=== PATIENT | female | born 1960 | race Hispanic/Latino ===

== ENCOUNTER 2017-10-08 11:54 | Emergency (ER) | payer BC ==
[2017-10-08 13:03] LABS: Urine Blood TRACE (NEG); Urine Glucose NEGATIVE (NEG); Urine Protein NEGATIVE (NEG); Urine Specific Gravity 1.025 (1.005-1.030); Urine pH 5.5 (5.0-7.0)
[2017-10-08 13:07] LABS: Absolute Lymphocytes (CBC) 2.2 K/uL (0.7-4.9); Absolute Monocytes 0.7 K/uL (0.1-1.3); Absolute Neutrophil 9.1 K/uL (1.8-8.0); Basophils % 0.7 % (0-1.3); Eosinophils % 0.6 % (0-4.4); Hematocrit 33.7 % (36.0-45.0); Lymphocytes % 18.4 % (15.3-44.8); MCH 22.9 pg (27.0-35.0); MCV 72.1 fL (80-100); MPV 8.2 fL (7.6-11.3); Monocytes % 5.6 % (3.3-12.3); RBC Red Blood Cell Count 4.67 M/uL (3.86-4.86)
[2017-10-08 13:10] LABS: Urine Bacteria <20 /HPF (<20); Urine Culture Reflex Order NOT NEEDED; Urine Mucus 2+ /HPF (NONE SEEN); Urine RBC <5 /HPF (NONE SEEN)
[2017-10-08 13:11] LABS: Protime INR 0.96
[2017-10-08 13:26] LABS: ALT/SGPT 19 U/L (12-78); AST/SGOT 15 U/L (15-37); Albumin 3.5 g/dL (3.4-5.0); Alkaline Phosphatase 110 U/L (45-117); Amylase Level 65 U/L (25-115); BUN Blood Urea Nitrogen 17 mg/dL (7-18); Bicarbonate 28 mmol/L (21-32); Bilirubin Direct < 0.1 mg/dL (0-0.2); Bilirubin Total 0.2 mg/dL (0.2-1.0); Glucose Level 106 mg/dL (74-106); Lipase 161 U/L (73-393); Potassium 3.5 mmol/L (3.5-5.1); Protein, Total 7.8 g/dL (6.4-8.2); Sodium Level 142 mmol/L (136-145)
--- NOTE | 2017-10-08 13:30 | RAD REPORT ---
EXAM DESCRIPTION: CTAbdomen Pelvis W Contrast - 10/08/2017 1:03 pm CLINICAL HISTORY: Abdominal pain. IV ONLY COMPARISON: Abdomen Pelvis W Contrast dated 03/27/2016; CT ABD PELVIS W CONTRAST dated 11/15/2014; [facility] Protocol dated 07/08/2016 TECHNIQUE: Biphasic CT imaging of the abdomen and pelvis was performed with 100 ml non-ionic IV cont rast. All CT scans are performed using dose optimization technique as appropriate and may include automated exposure control or mA/KV adjustment according to patient size. FINDINGS: The lung bases are clear. Diffuse fatty liver is present. No focal mass or intrahepatic biliary dilatation. The spleen, pancrea s and adrenal glands are normal. The kidneys are normal without hydronephrosis or mass. A small cyst is present lateral cortex of the right kidney measuring 6 mm. A poorly defined an irregular mass is seen in the rectum measuring 4.4 x 4.1 cm. Several small perire ctal lymph nodes are present, greater on the left, with the largest measures 6 mm. Appendectomy clips noted. No suspicious bony findings. IMPRESSION: Irregular mass is present in the rectum (4.4 x 4.1 cm) highly suspicious for rectal carc inoma. Recommend colonoscopy followup for further assessment.
--- NOTE | 2017-10-08 14:31 | ER ---
Nurse's Notes [facility] Name: Eliza Gr Age: 57 yrs Sex: Female : 1960 Arrival Date: 10/08/2017 Time: 11:58 Bed 14 Private MD: Marisol Dominguez C Diagnosis: Rectal Bleeding Presentation: 10/08 12:23 Presenting complaint: Patient states: " I have been having lower stomach for about 2 ph weeks, I have also had blood in my stools." Pt states that bleeding is bright red and began approx 1 month ago, pain began approx 2 weeks ago, reports hx of bowel resection in 2014. Transition of care: patient was not received from another setting of care. Onset of symptoms was October 08, 2017. Risk Assessment: Do you want to hurt yourself or someone else? Patient reports no desire to harm self or others. Initial Sepsis Screen: Does the patient meet any 2 criteria? No. Patient's initial sepsis screen is negative. Does the patient have a suspected source of infection? No. Patient's initial sepsis screen is negative. Care prior to arrival: None. 12:23 Method Of Arrival: Ambulatory ph 12:23 Acuity: HUBER 3 ph Historical: - Allergies: 12:21 No Known Drug Allergies; ph - Home Meds: 12:21 trazodone Oral [Active]; Lomotil oral oral [Active]; ph - PMHx: 12:21 Osteoporosis; ph - PSHx: 12:21 Partial intestine removal (2014); ph 12:22 Appendectomy; Hysterectomy; ph - Immunization history:: Adult Immunizations up to date. - Social history:: Smoking status: Patient/guardian denies using tobacco. - Ebola Screening: : No symptoms or risks identified at this time. Screenin:05 Abuse screen: Denies threats or abuse. Nutritional screening: No deficits noted. mb3 Tuberculosis screening: No symptoms or risk factors identified. Fall Risk None identified. Assessment: 13:14 General: Appears in no apparent distress. comfortable, well groomed, Behavior is calm, mb3 cooperative, appropriate for age. Pain: Complains of pain in abdomen. Neuro: No deficits noted. Level of Consciousness is awake, alert, obeys commands, Oriented to person, place, time, situation, Appropriate for age. Cardiovascular: No deficits noted. Denies chest pain, Heart tones present Capillary refill < 3 seconds Patient's skin is warm and dry. Pulses are all present. Respiratory: Airway is patent Respiratory effort is even, unlabored, Respiratory pattern is regular, symmetrical. GI: Abdomen is flat, Bowel sounds present X 4 quads. Abd is soft Abdomen is tender to palpation in right upper quadrant and left upper quadrant Reports upper abdominal pain. : No signs and/or symptoms were reported regarding the genitourinary system. Urine is clear. EENT: No signs and/or symptoms were reported regarding the EENT system. Derm: No signs and/or symptoms reported regarding the dermatologic system. Vital Signs: 12:22 BP 145 / 98; Pulse 77; Resp 18; Temp 98.4; Pulse Ox 98% on R/A; Weight 54.88 kg; Height ph 5 ft. 2 in. (157.48 cm); Pain 9/10; 15:12 BP 159 / 67; Pulse 78; Resp 16; Pulse Ox 100% on R/A; mb3 12:22 Body Mass Index 22.13 (54.88 kg, 157.48 cm) ph ED Course: 11:58 Patient arrived in ED. sb2 11:58 Marisol Dominguez MD is Private Physician. sb2 12:23 Arm band placed on. ph 12:24 Triage completed. ph 12:30 Jacobo Call PA is PHCP. jmm 12:30 Dann Brasher MD is Attending Physician. jmm 12:45 Inserted saline lock: 20 gauge in right antecubital area, using aseptic technique. mb3 Blood collected. 12:55 Home Zavala, RN is Primary Nurse. mb3 12:56 CT completed. Patient tolerated procedure well. Patient moved to CT via wheelchair. sj Patient moved back from CT. 12:58 CT Abd/Pelvis - W/Contrast In Process Unspecified. EDMS 13:36 Served as a certified medical records coder during rectal exam. 5 14:12 called and connected with Jacobo CUELLAR for patient admission consultation. eb 14:29 Marisol Dominguez MD is Referral Physician. jmm 15:10 IV discontinued, intact, bleeding controlled, No redness/swelling at site. Pressure mb3 dressing applied. 15:11 Patient has correct armband on for positive identification. Bed in low position. mb3 Administered Medications: No medications were administered Outcome: 14:31 Discharge ordered by . jmm 15:10 Discharged to home ambulatory. mb3 15:10 Condition: stable 15:10 Discharge instructions given to patient, Instructed on discharge instructions, follow up and referral plans. Demonstrated understanding of instructions, follow-up care. 15:11 Patient left the ED. mb3 Signatures: Dispatcher [employer] EDMS Jacobo Call PA PA jmm Jones, Susan sj Hall, Patricia, MIREYA RN Ruslan, Savannah [facility] Zaynab Galvin 2 Mercedes Dubois Mark, RN RN mb3
--- NOTE | 2017-10-08 14:32 | EDPHYS ---
Physician Documentation [facility] Name: Eliza Gr Age: 57 yrs Sex: Female : 1960 Arrival Date: 10/08/2017 Time: 11:58 Bed 14 Private MD: Marisol Dominguez C ED Physician Dann Brasher HPI: 10/08 13:23 This 57 yrs old Female presents to ER via Ambulatory with complaints of Abd jmm Pain > 50 y/o. 13:23 The patient presents with abdominal pain in the lower abdomen, right lower quadrant, in jmm the left lower quadrant. Onset: The symptoms/episode began/occurred gradually, 2 week(s) ago. The symptoms do not radiate. Associated signs and symptoms: Pertinent positives: blood in stools. This is a 57 year old female that presents to the ED with lower abdominal pain beginning approx 2 week ago. Patient states she has had bloody stools for the past month. Patient states in 2014 she had appendectomy with colon resection performed by Dr. Mercer. . Historical: - Allergies: 12:21 No Known Drug Allergies; ph - Home Meds: 12:21 trazodone Oral [Active]; Lomotil oral oral [Active]; ph - PMHx: 12:21 Osteoporosis; ph - PSHx: 12:21 Partial intestine removal (2014); ph 12:22 Appendectomy; Hysterectomy; ph - Immunization history:: Adult Immunizations up to date. - Social history:: Smoking status: Patient/guardian denies using tobacco. - Ebola Screening: : No symptoms or risks identified at this time. ROS: 13:23 Constitutional: Negative for fever, chills, and weight loss, Cardiovascular: Negative jmm for chest pain, palpitations, and edema, Respiratory: Negative for shortness of breath, cough, wheezing, and pleuritic chest pain. 13:23 Back: Negative for injury and pain, : Negative for injury, bleeding, discharge, and swelling, Neuro: Negative for headache, weakness, numbness, tingling, and seizure, Psych: Negative for depression, anxiety, suicide ideation, homicidal ideation, and hallucinations. 13:23 Abdomen/GI: Positive for abdominal pain, bloody stools. 13:23 All other systems are negative. Exam: 13:23 Head/Face: atraumatic. Eyes: EOMI, no conjunctival erythema appreciated ENT: Moist [facility] Mucus Membranes Chest/axilla: Normal chest wall appearance and motion. Cardiovascular: Regular rate and rhythm. No edema appreciated Respiratory: Normal respirations, no respiratory distress appreciated 13:23 Skin: General appearance color normal MS/ Extremity: Moves all extremities, no obvious deformities appreciated, no edema noted to the lower extremities Neuro: Awake and alert, normal gait 13:23 Constitutional: The patient appears in no acute distress, alert, awake. 13:23 Abdomen/GI: Inspection: abdomen appears normal, Bowel sounds: normal, Palpation: soft, mild abdominal tenderness, in the right lower quadrant and left lower quadrant. 13:23 Back: ROM is normal. Vital Signs: 12:22 BP 145 / 98; Pulse 77; Resp 18; Temp 98.4; Pulse Ox 98% on R/A; Weight 54.88 kg; Height ph 5 ft. 2 in. (157.48 cm); Pain 9/10; 15:12 BP 159 / 67; Pulse 78; Resp 16; Pulse Ox 100% on R/A; mb3 12:22 Body Mass Index 22.13 (54.88 kg, 157.48 cm) ph MDM: 12:52 Patient medically screened. [facility] 14:27 Data reviewed: vital signs, nurses notes. Physician consultation: Marisol Dominguez MD. [facility] 14:55 Counseling: I had a detailed discussion with the patient and/or guardian regarding: the [facility] historical points, exam findings, and any diagnostic results supporting the discharge/admit diagnosis, lab results, radiology results, the need for outpatient follow up. 10/08 12:40 Order name: Amylase, Serum [facility] 10/08 12:40 Order name: Basic Metabolic Panel [facility] 10/08 12:40 Order name: CBC with Diff; Complete Time: 13:28 [facility] 10/08 12:40 Order name: Creatinine for Radiology; Complete Time: 13:28 [facility] 10/08 12:40 Order name: Hepatic Function [facility] 10/08 12:40 Order name: Lipase [facility] 10/08 12:40 Order name: Urine Microscopic Only; Complete Time: 13:28 [facility] 10/08 12:40 Order name: IV Saline Lock; Complete Time: 13:04 [facility] 10/08 12:40 Order name: Ptt, Activated; Complete Time: 13:28 [facility] 10/08 12:40 Order name: PT-INR; Complete Time: 13:28 [facility] 10/08 12:40 Order name: CT Abd/Pelvis - W/Contrast; Complete Time: 13:35 [facility] 10/08 12:54 Order name: Urine Dipstick--Ancillary (enter results); Complete Time: 13:09 10/08 14:22 Order name: LAB Add On 10/08 14:56 Order name: Carcinoembryonic Antigen [facility] 10/08 12:40 Order name: Labs collected and sent; Complete Time: 13:04 [facility] 10/08 12:40 Order name: Urine Dipstick-Ancillary (obtain specimen); Complete Time: 13:04 [facility] Administered Medications: No medications were administered Disposition: 18:04 Co-signature as Attending Physician, Dann Brasher MD. rn Disposition: 10/08/17 14:31 Discharged to Home. Impression: Rectal Bleeding. - Condition is Stable. - Discharge Instructions: Rectal Bleeding. - Medication Reconciliation Form, Thank You Letter, Antibiotic Education, Prescription Opioid Use form. - Follow up: Marisol Dominguez MD; When: Upon discharge from the Emergency Department. Signatures: Dispatcher [employer] [facility] Jacobo Call PA PA jmm Nieto, Roman, MD MD rn Lisbeth Rush RN RN Home Martin RN RN mb3 Corrections: (The following items were deleted from the chart) 15:11 14:31 10/08/2017 14:31 Discharged to Home. Impression: Rectal Bleeding. Condition is mb3 Stable. Forms are Medication Reconciliation Form, Thank You Letter, Antibiotic Education, Prescription Opioid Use. Follow up: Marisol Dominguez; When: Upon discharge from the Emergency Department. [facility]
[2017-10-08 15:12] LABS: Carcinoembryonic Antigen 8.1 ng/mL (0-5.0)
[2017-10-08 15:15] VITALS: BP 145/98; TEMP 98.4; O2SAT 98
== END 2017-10-08 15:11 | disposition home or self-care (01) ==
LOC: ER 11:54
DX: K62.5 Hemorrhage of anus and rectum (principal)
CPT/HCPCS: 36415; 74177; 80048; 80076; 81003; 81015; 82150; 82378; 83690; 85025; 85610; 85730; 99284; Q9967

== ENCOUNTER 2017-10-19 07:55 | Day surgery (SDC) | payer BC ==
[2017-10-19] MEDS ORDERED: Ringers Lactate 1,000 ML IV ONE (08:15)
[2017-10-19] MEDS ORDERED: PROPOFOL 200 MG/20 ML VIAL IV ONE (09:09)
[2017-10-19] MEDS ORDERED: LIDOCAINE 1% MPF 5 ML VIAL ONE (09:10)
[2017-10-19] MEDS ORDERED: ONDANSETRON 4 MG/2 ML VIAL ONE (09:50)
--- NOTE | 2017-10-19 09:54 | ENDO RPT ---
[address], [address] COLONOSCOPY PROCEDURE REPORT EXAM DATE: 10/19/2017 PATIENT NAME: Eliza Gr MR #: [id number] BIRTHDATE: 1960 ATTENDING: Daniel Mercer MD STATUS: outpatient HAMMER ADJUSTER: Tabby Genao RN and Sade Evans INDICATIONS: The patient is a 57 yr old Female here for a colonoscopy due to bright red bleeding PROCEDURE PERFORMED: Colonoscopy with hot biopsy polypectomy MEDICATIONS: Per Anesthesia. ESTIMATED BLOOD LOSS: None CONSENT: The patient understands the risks and benefits of the procedure and understands that these risks include, but are not limited to: sedation, allergic reaction, infection, perforation and/or bleeding. Alternative means of evaluation and treatment include, among others: physical exam, x-rays, and/or surgical intervention. The patient elects to proceed with this endoscopic procedure. DESCRIPTION OF PROCEDURE: During intra-op preparation period all mechanical medical equipment was checked for proper function. Hand hygiene and appropriate measures for infection prevention was taken. Procedure, possible complications, alternatives including, but not limited to possibility of bleeding, perforation, tear, infection, sepsis, need for surgery, need for blood transfusion, were explained to the patient. After the risks, benefits and alternatives of the procedure were thoroughly explained, Informed consent was verified, confirmed and timeout was successfully executed by the treatment team. The patient was placed in the left lateral position. A digital rectal exam was performed and revealed external hemorrhoids. After appropriate level of anesthesia, the scope was passed. The EC-[id number] ([id number]) endoscope was introduced through the anus and advanced to the proximal transverse colon where ileocecal anastomosis its present. The quality of the prep was good. The instrument was then slowly withdrawn as the colon was fully examined. Scope withdrawal time was . COLON FINDINGS: A bleeding tumor/mass of unknown type was seen in the mid rectum approximately 10-12 cm from anus. Retroflexed views revealed no abnormalities and Retroflexed views revealed medium hemorrhoids. The scope was then completely withdrawn from the patient and the procedure terminated. ADVERSE EVENTS: There were no complications. IMPRESSIONS: Bleeding tumor/mass in the rectum RECOMMENDATIONS: 1. follow-up: office 1 week(s) 2. await biopsy results RECALL: for Colonoscopy, pending biopsy results. Daniel Mercer MD eSigned: Daniel Mercer MD 10/19/2017 9:54 AM cc: CPT CODES: ICD9 CODES: PATIENT NAME: Simón Eliza J. MR#: [id number]
[2017-10-19] MEDS: FENTANYL CITR 100 MCG/2 ML ONE ×2 (09:56→10:01)
[2017-10-19 10:28] VITALS: BP 117/65; TEMP 98.1; O2SAT 98
== END 2017-10-19 10:45 | disposition home or self-care (01) ==
LOC: OR 07:55
PROVIDERS: ATTEND Surgery
PROC: 0DBP8ZX Excision of Rectum, Via Natural or Artificial Opening Endoscopic, Diagnostic (ICD-10-PCS; principal; 2017-10-19 09:15)
DX: C20 Malignant neoplasm of rectum (principal); K64.4 Residual hemorrhoidal skin tags
CPT/HCPCS: 88305; J2405; J3010

== ENCOUNTER 2019-10-22 22:12 | Emergency (ER) | payer BC ==
--- OUTSIDE RECORDS SUMMARY | 2019-10-22 22:15 | XMS REPORT | Continuity of Care Document ---
:1960 Author Organization [facility] t Address [address] [place] [address] Care Team Providers Name Role Phone ANASTACIO Primary Care Physician Unavailable Diana WASHINGTON Attending Clinician Unavailable Gloria GOMES, Marisol Attending Clinician Unavailable Calixto CUELLAR Attending Clinician MARTHA Attending Clinician Unavailable Zhang DAWSON Attending Clinician Subha GOMES, K Attending Clinician Unavailable Anastacio HARO Attending Clinician Leigh Mckinnon DO Attending Clinician Jolene GOMES, R Attending Clinician Unavailable Martha HARO Attending Clinician Anthony ASHBY Attending Clinician Syl Marion MD Attending Clinician Nataliya HARO Attending Clinician Mihaela Brower MD Attending Clinician Ana Maria DAWSON, Vaishnavi Attending Clinician Davey DAWSON, A Attending Clinician Payers Payer Name Policy Type Policy Number Effective Date Expiration Date S yonathan [place] POS [id number] 2017 00:00:00 Problems Condition Condition Condition Status Onset Resolution Last Treating Co mments Source Name Details Category Date Date Treatment Clinician Date Severe Severe Disease Active protein-ca protein-ca 04-16 An derso janice janice 00:00: n malnutriti malnutriti 00 on on Painful Painful Disease Active urination urination 24 Leandro rso 00:00: n 00 Dehydratio Dehydratio Disease Active M D n n 24 Anderso 00:00: n 00 Irritant Irritant Disease Active contact contact 04-15 Anderso dermatitis dermatitis 00:00: n due to due to 00 ileostomy ileostomy Rectal Rectal Disease Active cancer cancer 10-28 Anderso 00:00: n 00 Menopause Menopause Disease Active - Anderso 00:00: n 00 Endometrio Endometrio Disease Active M D sis sis 10-21 Anderso 00:00: n 00 Osteoporos Osteoporos Disease Active M D is is Anderso n Gastric Gastric Disease Active reflux reflux Anderso n Personal Personal Disease Active history of history of An derso chemo chemo n History of History of Disease Active M D radiation radiation Leandro rso therapy therapy n Acute Acute Disease Active abdominal abdominal Leandro rso pain pain n Allergies, Adverse Reactions, Alerts This patient has no known allergies or adverse reactions. Family History Family Member Diagnosis Comments Start Date Stop Date Source Cousin -Breast cancer MD Janie guallpa Natural father -Melanoma MD Janie guallpa Maternal aunt -Breast cancer MD Leandro forbes Social History Social Habit Start Date Stop Date Quantity Comments Source Sex Assigned At MD Gaitan on Tobacco use and 2019-04-19 2019-04-19 Never used MD Gaitan on exposure 00:00:00 00:00:00 Alcohol intake 2019-04-19 2019-04-19 Current MD Janie guallpa 00:00:00 00:00:00 non-drinker of alcohol (finding) Smoking Status Start Date Stop Date Source Never smoker MD Fuentes Medications Ordered Filled Start Stop Current Ordering Indication Dosage Frequency Signature Comments Components Source Medication Medication Date Date Medication? Clinician (SIG) Name Name diphenoxyla Yes Rectal TAKE 1 TO MD borgesatropine -24 cancer 2 TABLETS A nderso (LOMOTIL) 00:00: BY MOUTH n 2.5 00 EVERY 6 mg-0.025 mg HOURS per tablet NEEDED FOR DIARRHEA . DO NOT EXCEED 8 TABLETS PER 24 HOURS alendronate Yes TAKE 1 MD (FOSAMAX) 6-25 TABLET BY Sree so 35 mg 00:00: MOUTH ONCE n tablet 00 A WEEK ciprofloxac 2019-0 Yes TAKE 1 MD in HCl 4-30 TABLET BY Andersmaryana (CIPRO) 500 00:00: MOUTH n mg tablet 00 EVERY 12 HOURS FOR 7 DAYS diphenoxyla 2020-0 2020- No Rectal 1{tbl} Take 1-2 MD te-atropine 4-21 07-24 cancer tablets by Anderso (LOMOTIL) 00:00: 00:00 mouth n 2.5 00 :00 every 6 mg-0.025 mg (six) per tablet hours as needed for diarrhea. Not to exceed 8 tablets per day diphenoxyla 2020-0 Yes Rectal TAKE 1 TO MD te-atropine 4-15 cancer 2 TABLETS A nderso (LOMOTIL) 00:00: BY MOUTH n 2.5 00 TWICE mg-0.025 mg DAILY per tablet NEEDED DIARRHEA. DO NOT EXCEED 8 TABLETS IN 24 HOURS diphenoxyla 2020-0 2019- No Rectal TAKE 1 TO MD te-atropine 3-17 04-15 cancer 2 TABLETS Anderso (LOMOTIL) 00:00: 22:05 BY MOUTH n 2.5 00 :11 TWICE mg-0.025 mg DAILY per tablet NEEDED FOR DIARRHEA . DO NOT EXCEED 8 PER 24 HOURS loperamide 2019-0 Yes 2mg Take 2 mg MD (IMODIUM 1-30 by mouth Anderso A-D) 2 mg 18:18: as needed n tablet 04 for diarrhea. cyanocobala 2020-0 Yes 1000ug Take 1,000 MD min 1-30 mcg by Anderso (vitamin 18:18: mouth n B-12) 1000 04 every mcg tablet other day. calcium 2020-0 2020- No 1{tbl} Take 1 MD carbonate/v 1-29 01-29 tablet by An derso itamin D3 15:15: 00:00 mouth n (CALCIUM 38 :00 daily. 600 WITH VITAMIN D3 ORAL) diphenoxyla 2020-0 2020- No Rectal 1{tbl} Take 1-2 MD te-atropine 1-29 03-17 cancer tablets by Anderso (LOMOTIL) 00:00: 00:00 mouth 2 n 2.5 00 :00 (two) mg-0.025 mg times a per tablet day as needed for diarrhea. Not to exceed 8 tablets per day diphenoxyla 2018-03- No Rectal 1{tbl} Take 1-2 MD te-atropine 0-31 11- cancer tablets by Anderso (LOMOTIL) 00:00: 00:00 mouth 3 n 2.5 00 :00 (three) mg-0.025 mg times a per tablet day as needed for diarrhea. omeprazole 2018-03- No 20mg Take 20 mg MD (PriLOSEC 0-28 10-28 by mouth Sree so OTC) 20 MG 16:38: 00:00 daily. n tablet 20 :00 peg 2018-03 Yes History of Use as MD 3350-electr 0-24 radiation directed Anderso olytes 00:00: therapy by n (Emil) 00 ordering [id number] provider. .74 g solution peg 2018-03- No History of Use as MD 3350-electr 0-24 10-21 radiation directed Anderso olytes 00:00: 00:00 therapy by n (Emil) 00 :00 ordering [id number] provider. .74 g solution diphenoxyla 2019- No Rectal 1{tbl} Take 1-2 MD te-atropine 9-26 01-29 cancer tablets by Anderso (LOMOTIL) 00:00: 00:00 mouth 2 n 2.5 00 :00 (two) mg-0.025 mg times a per tablet day as needed for diarrhea. Not to exceed 8 tablets per day diphenoxyla No Rectal 1{tbl} Take 1-2 MD te-atropine 7-16 09-26 cancer tablets by Anderso (LOMOTIL) 00:00: 00:00 mouth 2 n 2.5 00 :00 (two) mg-0.025 mg times a per tablet day as needed for diarrhea. Not to exceed 8 tablets per day pantoprazol Yes 40mg Take 40 mg MD e 5-08 by mouth Anderso (PROTONIX) 00:00: daily with n 40 mg EC 00 breakfast. tablet lidocaine 4 No Rectal 2{patch Apply 2 MD % ptmd 2-21 - cancer } patches Anderso 00:00: 00:00 topically n 00 :00 daily. ferrous 2019-0 2019- No Acute 325mg Take 1 MD sulfate 325 2-14 10-28 posthemorrh tablet Anderso mg (65 mg 00:00: 00:00 agic anemia (325 mg) n elemental 00 :00 by mouth iron per daily. tablet) tablet methocarbam 2019- No Attention 500mg Take 1 MD ol 2-13 -28 to tablet Anderso (ROBAXIN) 00:00: 00:00 ileostomy (500 mg) n 500 mg 00 :00 by mouth tablet every 8 (eight) hours as needed for muscle spasms (abdominal pain/ryan ess). lidocaine-p Yes Encounter Apply to MD rilocaine 1-10 for Port-A-Cat Leandro bud (EMLA) 00:00: adjustment h area 30 n 2.5-2.5% 00 and to 45 cream management minutes of vascular prior to access port device access as directed (topical anesthetic to the anterior chest only). ondansetron Yes cancer 8mg Take 1 MD (ZOFRAN) 8 8-21 chemotherap tablet (8 Anderso mg tablet 00:00: y-induced mg) by n 00 nausea and mouth vomiting every 8 hours as needed for nausea or vomiting. prochlorper Yes cancer 10mg Take 1 MD azine 8-21 chemotherap tablet (10 A nderso (COMPAZINE) 00:00: y-induced mg) by n 10 mg 00 nausea and mouth tablet vomiting every 6 hours as needed for nausea or vomiting. iron 2018- No 1{tbl} Take 1 MD fum/folic 7-30 10-28 tablet by Leandro farrell acid/mv,min 00:00: 00:00 mouth n 15 00 :00 daily. (HEMOCYTE-P JOSE ANTONIO ORAL) alendronate Yes 1{tbl} Take 1 MD (FOSAMAX) 5 6-26 tablet by And erso mg tablet 00:00: mouth once n 00 a week. calcium 2018- No 1{tbl} Take 1 MD phosphate 6-01 10-28 tablet by Leandro farrell trib/vit D3 00:00: 00:00 mouth n (CALTRATE 00 :00 twice GUMMY BITES daily. ORAL) 2017- Yes 1{tbl} Take 1 MD comb 1-15 tablet by Janie no.42/folic 00:00: mouth n acid 00 daily. (PRENA1 CHEW ORAL) traZODone 2008-0 Yes 1.5{tbl Take 1.5 M D (DESYREL) 04-23 } tablets by Leandro washingtono 100 mg 00:00: mouth at n tablet 00 bedtime. Immunizations Ordered Immunization Filled Immunization Date Status Commen ts Source Name Name Influenza, 2019-01-20 Completed MD Fuentes Quadrivalent 00:00:00 Vital Signs Vital Name Observation Time Observation Value Comments Source Systolic blood pressure 2019-04-21 15:02:12 120 mm[Hg] MD Fuentes Diastolic blood pressure 2019-04-21 15:02:12 73 mm[Hg] MD Fuentes Heart rate 2019-04-21 15:02:12 78 /min MD Sree weems Body temperature 2019-04-21 15:02:12 36.61 Dari MD Marisol davis Respiratory rate 2019-04-21 15:02:12 20 /min MD Marisol davis Body weight 2019-04-21 15:02:12 50.3 kg MD Sree weems BMI 2019-04-21 15:02:12 19.65 kg/m2 MD Sree weems Oxygen saturation in 2019-04-21 15:02:12 95 /min MD Fuentes Arterial blood by Pulse oximetry Procedures Procedure Date / Time Performed Performing Clinician Sour e CT CHEST ABDOMEN PELVIS W 2019-04-19 22:31:00 Diego Yates MD CONTRAST CARCINOEMBRYONIC ANTIGEN 2019-04-19 17:01:00 Gayle Yates MD COMPLETE BLOOD COUNT W/ 2019-04-19 17:01:00 Redd Yates DIFFERENTIAL COMPREHENSIVE METABOLIC PANEL 2019-04-19 17:01:00 Norman Yates MD LACTATE DEHYDROGENASE 2019-04-19 17:01:00 Ayleen Yates MD PHOSPHORUS LEVEL 2019-04-19 17:01:00 Ayleen Yates MD MAGNESIUM LEVEL 2019-04-19 17:01:00 Ayleen Yates MD And erson Results CBC 2019-04-19 17:01:00 Ayleen Yates MD And erson MANUAL DIFFERENTIAL 2019-04-19 17:01:00 Ayleen Yates MD GLUCOSE LEVEL 2019-04-19 17:01:00 Ayleen Yates MD And erson BLOOD UREA NITROGEN 2019-04-19 17:01:00 Ayleen Yates MD ELECTROLYTE PANEL 2019-04-19 17:01:00 Ayleen Yates MDrson SERUM CREATININE 2019-04-19 17:01:00 Ayleen Yates MD .GLOMERULAR FILTRATION RATE 2019-04-19 17:01:00 Shanna Yates MD CALCIUM LEVEL TOTAL 2019-04-19 17:01:00 Ayleen Yates MD ALBUMIN LEVEL 2019-04-19 17:01:00 Ayleen Yates MD And erson ALKALINE PHOSPHATASE 2019-04-19 17:01:00 Ayleen Yates ALANINE AMINOTRANSFERASE 2019-04-19 17:01:00 Gayle Yates MD ASPARTATE AMINOTRANSFERASE 2019-04-19 17:01:00 Stanley Yates MD TOTAL PROTEIN 2019-04-19 17:01:00 Ayleen Yates MD And erson FRACTIONATED BILIRUBIN 2019-04-19 17:01:[address] CHEST ABDOMEN PELVIS W 2019-01-19 19:48:00 Lina De Luna MD CONTRAST POC BLOOD UREA NITROGEN + 2019-01-19 17:05:00 Lina De Luna MD CREATININE CARCINOEMBRYONIC ANTIGEN 2019-01-19 16:36:00 Lina De Luna MD COMPLETE BLOOD COUNT W/ 2019-01-19 16:36:00 Lina De Luna MDrson DIFFERENTIAL COMPREHENSIVE METABOLIC PANEL 2019-01-19 16:36:00 Courtney De Luna MD LACTATE DEHYDROGENASE 2019-01-19 16:36:00 Lina De Luna MD And erson MAGNESIUM LEVEL 2019-01-19 16:36:00 Lina De Luna MD PHOSPHORUS LEVEL 2019-01-19 16:36:00 Lina De Luna MD Results CBC 2019-01-19 16:36:00 Lina De Luna MD MANUAL DIFFERENTIAL 2019-01-19 16:36:00 Lina De Luna MD Sree son GLUCOSE LEVEL 2019-01-19 16:36:00 Lina De Luna MD BLOOD UREA NITROGEN 2019-01-19 16:36:00 Lina De Luna MD Sree weems ELECTROLYTE PANEL 2019-01-19 16:36:00 Lina De Luna MD SERUM CREATININE 2019-01-19 16:36:00 Lina De Luna MD .GLOMERULAR FILTRATION RATE 2019-01-19 16:36:00 Lina De Luna MD CALCIUM LEVEL TOTAL 2019-01-19 16:36:00 Lina De Luna MD Sree weems ALBUMIN LEVEL 2019-01-19 16:36:00 Lina De Luna MD ALKALINE PHOSPHATASE 2019-01-19 16:36:00 Lina De Luna MD Leandro rskaiden ALANINE AMINOTRANSFERASE 2019-01-19 16:36:00 Lina De Luna MD ASPARTATE AMINOTRANSFERASE 2019-01-19 16:36:00 Lina De Luna TOTAL PROTEIN 2019-01-19 16:36:00 Lina De Luna MD FRACTIONATED BILIRUBIN 2019-01-19 16:36:00 Lina De Luna MDson ENDOSCOPY NOTE RESULTS 2019-01-17 18:02:21 MD Marisol Morrow DIAGNOSTIC FLEXIBLE 2019-01-17 18:01:00 Syl Marion MD Leandro rskaiden COLONOSCOPY PROXIMAL TO George SPLENIC FLEXURE Encounters Start End Encounter Admission Attending Care Care Encounter Source Date/Time Date/Time Type Type Clinicians Facility Department ID 2019-09-16 Outpatient [facility] CANDELARIA GAONA [id number] 0 17:47:44 Janie guallpa 2019-10-04 2019-10-04 Outpatient LISBET MCGRATH MDA, MDA [id number] [id number] 00:00:00 00:00:00 Arnie SINGH 2019-09-22 2019-09-22 Outpatient LISBET MCGRATH MDA, MDA [id number] 00:00:00 00:00:00 Arnie SINGH Results Test Description Test Time Test Comments Results Result [facility] Comments CT Chest Abdomen 2019-04-19 1. A 0.9 x 2 cm MD Fuentes Pelvis with 22:58:33 area of soft Contrast tissue thickening anterior to the rectum may represent postsurgical change versus developing tumor recurrence. Continued attention on followup.Interface , Radiology Results In 04/19/2019 5:00 PM CSTFULL RESULT:Examination : CT CHEST ABDOMEN PELVIS W CONTRAST, 04/19/2019 4:31 PMClinical History: Rectal cancerIndication: RestagingCompariso n: CT from 09/30/2018, CT from 02/15/2018, CT from 10/08/2017, Technique: ct chest with contrast. ct abdomen with contrast. ct pelvis with contrast. Findings:Lungs: Lungs are clear. Hepatobiliary: The liver, gallbladder, spleen, pancreas are normal.Gastrointes tinal: Rectal anastomosis is intact. A 0.9 x 2 cm area of soft tissue thickening anterior to the rectum image 253 series 3 appears slightly more dense compared to prior. A 0.5 cm perirectal node image 249 series 3 is stable. No bowel obstruction. No ascites.Genitourin samuel: There is a 0.9 cm right renal cyst image 23 series 3. Adrenals are normal.Lymphatics: No lymphadenopathy.MS K: Ventral abdominal wall hernia repair. IMPRESSION:1. A 0.9 x 2 cm area of soft tissue thickening anterior to the rectum may represent postsurgical change versus developing tumor recurrence. Continued attention on followup. CEA 2019-04-19 18:27:32 Test Item Value Reference Range Interpretation Comme nts CEA (test code = 5203) 0.8 ng/mL <=3.8 Refer ence Ranges: Smoker: 0.0-5.5 MD FuentesFractionated [id number] 18:04:07 Test Item Value Reference Range Interpretation Comments Bili Total (test 0.3 mg/dL <=1.2 Indocyanine Green (ICG) code = 5096) may cause false ly elevated biliru bin results. Total and direct bilirubin must not be measured from s amples containing indo cyanine green. False el evation of total bilirubin can be seen in patient s with IgG concentrations above 28 g/L. Bili Direct (test 0.1 mg/dL <=0.3 Indocyanin e Green (ICG) code = 5094) may cause false ly elevated biliru bin results. Total and direct bilirubin must not be measured from s amples containing indo cyanine green. Bili Indirect (test 0.2 mg/dL 0-0.9 code = 5095) MD FuentesGlomerular Filtration [id number] 18:04:06 Test Item Value Reference Range Interpretation Comments eGFR-AA (test 104 >=60 mL/min/1.73 sq. Normal eGFR: >= 60 code = 8062) m mL/min/1.73 m2N ote: The eGFR is calcula purnima using the CKD-EPI equ ation. The eGFR declines w ith age. eGFR <60 mL/min /1.73 m2 is considered as " decreased". This equation s hould only be used for pat ients 18 and older. Acco rding to the [facility] dney Foundation's dney Disease Outcome Quality Initiative (KDO QI) classification and 2012 Kidney Disease Improving Global Outcomes (KDIGO) Clinical Practi ce Guideline, the stage of CKD should be c ategorized based on estima purnima GFR. Stage Descripti on GFR mL/min/1.73 m21 Normal or high GFR >=902 Mildly de creased GFR 60-893a Mildly to moder ately decreased GFR 45-593b Moderately to s everely decreased GFR 30-444 Severely decrea sed GFR 15-295 Kidney failure <15 eGFR-SUZANNE (test 90 >=60 mL/min/1.73 sq. Jena l eGFR: >= 60 code = 8063) m mL/min/1.73 m2N ote: The eGFR is calcula purnima using the CKD-EPI equ ation. The eGFR declines w ith age. eGFR <60 mL/min /1.73 m2 is considered as " decreased". This equation s hould only be used for pat ients 18 and older. Acco rding to the [facility] dney Foundation's dney Disease Outcome Quality Initiative (KDO QI) classification and 2012 Kidney Disease Improving Global Outcomes (KDIGO) Clinical Practi ce Guideline, the stage of CKD should be c ategorized based on estima purnima GFR. Stage Descripti on GFR mL/min/1.73 m21 Normal or high GFR >=902 Mildly de creased GFR 60-893a Mildly to moder ately decreased GFR 45-593b Moderately to s everely decreased GFR 30-444 Severely decrea sed GFR 15-295 Kidney failure <15 MD FuentesMagnesium [id number] 18:04:05 Test Item Value Reference Range Interpretation Comments Magnesium (test code = 6359) 1.9 mg/dL 1.6-2.6 MD [id number] 18:04:04 Test Item Value Reference Range Interpretation Comments LDH (test code = 174 U/L 135-214 Results gre ater than 1800 6111) U/L may not be reliable due to matrix effec t with extended diluti on as it exceeds the man ufacturer s recommended l imit. Caution should be exercised when interpreti ng such values and done in conjunction wit h clinical context. MD FuentesAlkaline [id number] 18:04:03 Test Item Value Reference Range Interpretation Comments Alk Phos (test code = 4768) 81 U/L 35-104 MD FuentesAlbumin [id number] 18:04:02 Test Item Value Reference Range Interpretation Comments Albumin Lvl (test code = 4763) 4.4 3.5- 5.2 gm/dL MD FuentesAspartate [id number] 18:04:01 Test Item Value Reference Range Interpretation Comments AST (test code = 4731) 18 U/L <=32 MD FuentesElectrolyte [id number] 18:04:00 Test Item Value Reference Range Interpretation Comments Sodium Lvl (test code = 7355) 139 136- 145 mEq/L Potassium Lvl (test code = 6854) 3.2 3.5- 5.1 mEq/L L Chloride (test code = 5279) 100 98- 107 mEq/L CO2 (test code = 5227) 32 22- 29 mEq/L H Anion Gap (test code = 9325) 7 4- 14 mEq/L Lab Interpretation (test code = Abnormal 21620-2) MD Fuentes.Serum [id number] 18:03:59 Test Item Value Reference Range Interpretation Comments Creatinine (test code = 5399) 0.73 mg/dL 0.51-0.95 MD FuentesTotal [id number] 18:03:57 Test Item Value Reference Range Interpretation Comments Total Protein (test code = 7649) 7.0 6.4- 8.3 gm/dL MD FuentesPhosphorus [id number] 18:03:56 Test Item Value Reference Range Interpretation Comments Phosphorus (test code = 6817) 3.6 mg/dL 2.5-4.5 MD FuentesCalcium [id number] 18:03:55 Test Item Value Reference Range Interpretation Comments Calcium Lvl (test code = 5258) 9.6 mg/dL 8.4-10.2 MD [id number] 18:03:54 Test Item Value Reference Range Interpretation Comments ALT (test code = 4705) 16 U/L <=33 MD [id number] 18:03:53 Test Item Value Reference Range Interpretation Comments BUN (test code = 5055) 9 mg/dL 6-23 AlfredoGlucose [id number] 18:03:52 Test Item Value Reference Range Interpretation Comments Glucose Level (test code 104 mg/dL 70-99 H Ref erence range is = 5699) valid for fasti ng specimens only. Guidelines established by the [place] Diabet es [employer] guidelines (Standards of Medical Care in Diabetes 2016. Diabetes Care 2 016; 39: S13-22) are that a fasting gluco se of greater than or equal to 126 mg /dL or a random glu cose greater than or equal to 200 mg /dL with symptoms, that are confirmed b y repeat testing on a different day, meet the criteria fo r diabetes mellboone us. Lab Interpretation (test Abnormal code = 75142-9) MD Fue[id number] 17:12:31 Test Item Value Reference Range Interpretation Comments Neutrophil % (test code = 79.0 % 42-66 H 10712-2) Lymphocyte % (test code = 10.2 % 24-44 L 737-7) Monocyte % (test code = 7.6 % 2-7 H 744-3) Eosinophil % (test code = 2.3 % 1-4 713-8) Basophil % (test code = 0.6 % 0-1 707-0) IGRE % (test code = 0.3 % 0-0.4 IGRE % c ount 08870-7) includes Metamyelocytes, Myelocytes, and Promyelocytes. Neutrophil Abs (test code 5.53 K/uL 1.7-7.3 = 753-4) Lymphocyte Abs (test code 0.71 K/uL 1-4.8 L = 732-8) Monocyte Abs (test code = 0.53 K/uL 0.08-0.7 743-5) Eosinophil Abs (test code 0.16 K/uL 0.04-0.4 = 712-0) Basophil Abs (test code = 0.04 K/uL 0-0.1 705-4) IG Abs (test code = 0.02 K/uL 0-0.04 36307-1) Lab Interpretation (test Abnormal code = 04624-1) MD Fuentes.[id number] 17:12:27 Test Item Value Reference Range Interpretation Comments WBC (test code = 7.0 K/uL 4-11 6690-2) RBC (test code = 4.29 4.00- 5.50 M/uL 789-8) Hgb (test code = 12.1 12.0- 16.0 gm/dL 718-7) Hct (test code = 37.3 % 37-47 4544-3) MPV (test code = 9.3 fL 4-10.4 787-2) MCH (test code = 28.2 pg 27-31 785-6) MCHC (test code = 32.4 31.0- 36.0 gm/dL 786-4) RDW-SD (test code = 40.6 fL 35.1-46.3 57807-5) RDW-CV (test code = 12.8 % 12-15.5 788-0) Platelet count (test 248 K/uL 140-440 code = 777-3) INRBC (test code = 0.0 % <=0.0 The INRBC (instrument 5974) NRBC) value ref lects the enumerationof n ucleated red blood cells contained in a 200uL sampleof whole blood analyzed by the instrument. Thi s value maydiffer from the NRBC value reported in a manual differential,wh ich is based on a 100 cell differential. MD FuentesPO BUN + [id number] 17:20:36 Test Item Value Reference Range Interpretation Comments POC BUN (test code = 7 mg/dL 8-26 L 6299-2) POC Crea (test code 0.7 mg/dL 0.6-1.3 Medicati ons, especially = 33838-4) hydroxyurea or supplements, london ch as ascorbate, can interfere with test resul ts causing a falsely and significantlyhi gher result than exp ected. If a problem is [place] spected with a patient' s result, a sample should be sent to the doctors [facility] for confirmatory te sting. POC eGFR-AA (test 110 >=60 Normal eGF R >= 60 code = 25523-6) mL/min/1.73 m2 mL/min/1.7 3 m2 The eGFR is calculated u sing the CKD-EPI equatio n. The eGFR declines w ith age. eGFR <60 mL/min /1.73 m2 is considered a s "decreased" Thi s equation should only be used for patients 18 and older. According to [facility] National Kidney Foundati on's Kidney Disease Outcome Quality Initiat mitchell (KDOQI) classif ication and 2012 Kidney Disease Improving Globa l Outcomes (KDIGO) Clinica l Practice Guideline, the stage of CKD should be c ategorized based on estima purnima GFR. Stage Descripti on GFR mL/min/1.73 m21 Kidney damage with nor mal or high GFR >= 902 Kidney damage with mil d decrease in GFR 60-89 3a Mild to moderate decrea se in GFR 45-593b Mode rate to severe decrease in GFR 30-444 Severe decrease in GFR 15-29 5 Kidney failure <15 (or dialysis) POC eGFR-SUZANNE (test 95 >=60 Normal eG FR >= 60 code = 03873-9) mL/min/1.73 m2 mL/min/1.7 3 m2 The eGFR is calculated u sing the CKD-EPI equatio n. The eGFR declines w ith age. eGFR <60 mL/min /1.73 m2 is considered a s "decreased" Thi s equation should only be used for patients 18 and older. According to [facility] National Kidney Foundati on's Kidney Disease Outcome Quality Initiat mitchell (KDOQI) classif ication and 2012 Kidney Disease Improving Globa l Outcomes (KDIGO) Clinica l Practice Guideline, the stage of CKD should be c ategorized based on estima purnima GFR. Stage Descripti on GFR mL/min/1.73 m21 Kidney damage with nor mal or high GFR >= 902 Kidney damage with mil d decrease in GFR 60-89 3a Mild to moderate decrea se in GFR 45-593b Mode rate to severe decrease in GFR 30-444 Severe decrease in GFR 15-29 5 Kidney failure <15 (or dialysis) POC Clean Dev (test Yes code = 6672) Lab Interpretation Abnormal (test code = 66980-2) MD FuentesENDOSCOPY NOTE [id number] 18:02:21George Morrow MD - 01/17/2019 1:02 PM CDTPatient Name: Ramiro Lombardo: FemaleMRN: [id number]: [id number] Date No Time: 01/17/2019Instrument Name: 2290 COLON-PCFProceduralist(s): Aung MARTINEZeddickson Name: ColonoscopyScope In: 1:20:25 PMScope Out: 1:33:19 PMScope Withdrawal Time 0 hours 10 minutes 25 seconds Total Procedure Duration Time 0 hours12 minutes 54 seconds Patient Profile: This is a 58 year old female with a h/o CRC post resection. Here for surveillance colonoscopy.Indications: High risk colon cancer surveillance: Personal history of colon cancerMedications: Total IV Anesthesia (TIVA), [id number] Description: Pre-Anesthesia Assessment: - Prior to the procedure, a History and Physical was performed, and patient medications and allergies were reviewed. The patient's tolerance of previous anesthesia was also reviewed. The risks and benefits of the procedure and the sedation options and risks were discussed with the patient. All questions were answered, and informed consent was obtained. Prior Anticoagulants: The patient has taken no previous anticoagulant or antiplatelet agents. ASAGrade Assessment: III - A patient with severe systemic disease. After reviewing the risks and benefits, the patient was deemed in satisfactory condition to undergo the procedure. Informed consent wasobtained. Throughout the procedure, the patient's blood pressure, pulse, and oxygen saturations were monitored continuously.The Olympus PCF- [id number] ([id number]) pedi colonoscope was introduced through the anus and advanced to the terminal ileum. The colonoscopy was performed without difficulty. The patient tolerated the procedure well. The quality of the bowel preparation was evaluated using the BBPS (Rose Bowel Preparation Scale) with scores of: Right Colon = 3 (entire mucosa seen well with no residual staining, small fragments of stool or opaque liquid), Transverse Colon = 3 (entire mucosaseen well with no residual staining, small fragments of stool or opaque liquid) and Left Colon = 3 (entire mucosa seen wellwith no residual staining, small fragments of stool or opaque liquid). Thetotal BBPS score equals 9. The quality of the bowel preparation was excellent. The terminal ileum, ileocecal valve, appendiceal orifice, and rectum were photographed.Findings: The perianal and digital rectal examinations were normal. The terminal ileum and IC anastomosis appeared normal. The colon (entire examined portion) appeared normal.Complications: No immediate comp lications.Estimated Blood Loss: Estimated blood loss was minimal.Post Procedure Diagnosis: - Theexamined portion of the ileum and IC anastomosis was normal. - The entire examined colon (remnant) is normal.Recommendation: - Discharge patient to home. - Resume previous diet. - Continue present medications. - Await pathology results. - Repeat colonoscopy for surveillance as indicated by primary MD.Attending Participation: I personally performed the entire procedure.GEORGE MARION MD01/17/2019 2:06:33PMThis report has been signed electronically.Number of Addenda: 0MD Alfredo
[2019-10-22] MEDS ORDERED: NA CHLORIDE 0.9% 500 ML ONE (23:01)
[2019-10-22] MEDS ORDERED: LIDOCAINE 1% W/EPI 1:100,000 MDV 20 ML VIAL ONE (23:01)
[2019-10-22] MEDS ORDERED: FENTANYL CITR 100 MCG/2 ML ONE (23:01)
[2019-10-22] MEDS ORDERED: BUPIVACAINE 0.5% PF 10 ML VIAL ONE (23:01)
[2019-10-22 23:10] LABS: Absolute Lymphocytes (CBC) 0.6 K/uL (0.7-4.9); Basophils % 0.5 % (0-1.3); Hematocrit 35.7 % (36.0-45.0); Lymphocytes % 6.7 % (15.3-44.8); MPV 8.4 fL (7.6-11.3)
[2019-10-22 23:26] LABS: Potassium 3.4 mmol/L (3.5-5.1)
--- NOTE | 2019-10-23 00:06 | EDPHYS ---
Physician Documentation [facility] Name: Eliza Gr Age: 59 yrs Sex: Female : 1960 Arrival Date: 10/22/2019 Time: 22:14 Bed 26 Private MD: ED Physician Luis Patel HPI: 10/21 22:33 This 59 yrs old Female presents to ER via Ambulatory with complaints of Spider cp Bite. 22:33 The patient presents with an abscess of the right hip. cp 22:33 Description: erythematous. Onset: The symptoms/episode began/occurred 4 day(s) ago. cp Possible cause(s): spider bite. Associated signs and symptoms: Pertinent negatives: discharge, drainage, fever. Historical: - Allergies: 22:32 Tramadol HCl; ll1 - PMHx: 22:32 Osteoporosis; ll1 22:32 colon CA; ll1 - Immunization history:: Flu vaccine is up to date. - Social history:: Smoking status: Patient denies any tobacco usage or history of. Patient/guardian denies using alcohol, street drugs, tobacco products. ROS: 22:40 Constitutional: Negative for fever. cp 22:40 Respiratory: Negative for cough, shortness of breath. cp 22:40 Abdomen/GI: Negative for abdominal pain, nausea, vomiting, and diarrhea. 22:40 Skin: Positive for abscess, cellulitis, of the right hip. 22:40 All other systems are negative. Exam: 22:45 Constitutional: The patient appears in no acute distress, alert, awake, non-toxic, well cp developed, well nourished, uncomfortable. 22:45 Abdomen/GI: Palpation: abdomen is soft and non-tender, in all quadrants. cp 22:45 Skin: abscess, that is small, of the right hip, with surrounding cellulitis, that is mild, induration, that is mild is noted, located on the right hip. Vital Signs: 22:30 BP 144 / 87; Pulse 82; Resp 17; Temp 99.0; Pulse Ox 96% ; Pain 10/10; ll1 23:30 BP 119 / 74; Pulse 70; Resp 16; Pulse Ox 96% on R/A; jb4 0802 00:00 BP 112 / 58; Pulse 79; Resp 16; Pulse Ox 95% on R/A; jb4 Procedures: 00:01 I \T\ D: Incision and drainage was performed for an abscess of the right hip Prepped with cp Betadine, Anesthetized with 5 ccs of mixture 1% lidocaine with epi and 0.5% marcaine. Incised with #11 blade. Drained small amount purulent fluid. bloody fluid. Packed with iodoform gauze, Dressing: sterile 4x4 gauze, the patient tolerated the procedure well. MDM: 10/21 22:30 Patient medically screened. cp 22:40 Differential diagnosis: abscess, cellulitis, insect bite. cp 10/22 00:05 Data reviewed: vital signs, nurses notes, lab test result(s), and as a result, I will cp discharge patient. 00:05 Counseling: I had a detailed discussion with the patient and/or guardian regarding: the cp historical points, exam findings, and any diagnostic results supporting the discharge/admit diagnosis, lab results, the need for outpatient follow up, a family practitioner, to return to the emergency department if symptoms worsen or persist or if there are any questions or concerns that arise at home. Response to treatment: the patient's symptoms have markedly improved after treatment, and as a result, I will discharge patient. 10/21 22:30 Order name: CBC with Diff cp 10/22 00:03 Interpretation: Normal except: HGB 11.9; HCT 35.7; MCV 85.1; LILY% 85.5; LYM% 6.7; LYMA cp 0.6. 10/21 22:30 Order name: BMP; Complete Time: 23:49 cp 10/22 00:03 Interpretation: Normal except: K 3.4; GLUC 148; GFR 69. cp 10/21 22:30 Order name: Wound Culture cp 10/21 23:12 Order name: Manual Differential EDMS 10/21 22:30 Order name: I\T\D Setup; Complete Time: 23:07 cp 10/21 22:30 Order name: IV; Complete Time: 23:07 cp Administered Medications: 10/21 23:00 Drug: NS 0.9% 500 ml Route: IV; Rate: bolus; Site: right antecubital; jb4 23:30 Follow up: Response: No adverse reaction; IV Status: Completed infusion; IV Intake: jb4 500ml 23:00 Drug: fentaNYL (PF) 25 mcg {Note: rass score 0.} Route: IVP; Site: right antecubital; jb4 23:30 Follow up: Response: No adverse reaction; Pain is decreased; RASS: Alert and Calm (0) jb4 23:30 Drug: Lidocaine-Epinephrine -1%: (1:100,000) 5 ml {Note: Administered by ER provider..} jb4 Volume: 20 ml; Route: Infiltration; 23:30 Drug: Marcaine (0.5 %) 10 ml {Note: Administered by ER provider.} Volume: 10 ml; Route: jb4 Infiltration; 10/22 00:00 Drug: Bactrim (160 mg-800 mg (DS) 1 tablet Route: PO; jb4 00:45 Follow up: Response: No adverse reaction jb4 00:00 Drug: Doxycycline 100 mg Route: PO; jb4 00:45 Follow up: Response: No adverse reaction jb4 00:45 Drug: Potassium Effervescent Tablet 25 mEq Route: PO; jb4 00:45 Follow up: Response: Medication administered at discharge. 4 Disposition: 00:15 Chart complete. cp Disposition: 10/23/19 00:05 Discharged to Home. Impression: Cutaneous abscess of right lower limb - hip. - Condition is Stable. - Discharge Instructions: Skin Abscess, Incision and Drainage. - Prescriptions for Doxycycline Hyclate 100 mg Oral Tablet - take 1 tablet by ORAL route every 12 hours; 20 tablet. Bactrim DS 800- 160 mg Oral Tablet - take 1 tablet by ORAL route every 12 hours for 10 days; 20 tablet. Tylenol- Codeine #3 300-30 mg Oral Tablet - take 2 tablets by ORAL route every 8 hours As needed; 15 tablet. - Medication Reconciliation Form, Thank You Letter, Antibiotic Education, Prescription Opioid Use form. - Follow up: Private Physician; When: 48 Hours; Reason: Wound Recheck. - Problem is new. - Symptoms have improved. Addendum: 10/24/2019 04:31 Co-signature as Attending Physician, Luis Patel MD I agree with the assessment and t w4 plan of care. Signatures: Dispatcher [employer] EDMS Sang Long PA PA cp Bryson, James, RN RN jb4 Luis Patel MD MD tw4 Alfredo Fung RN RN ll1 Corrections: (The following items were deleted from the chart) 10/22 00:47 00:05 10/23/2019 00:05 Discharged to Home. Impression: Cutaneous abscess of right lower jb4 limb - hip. Condition is Stable. Forms are Medication Reconciliation Form, Thank You Letter, Antibiotic Education, Prescription Opioid Use. Follow up: Private Physician; When: 48 Hours; Reason: Wound Recheck. Problem is new. Symptoms have improved. cp
--- NOTE | 2019-10-23 00:06 | ER ---
Nurse's Notes [facility] Name: Eliza Gr Age: 59 yrs Sex: Female : 1960 Arrival Date: 10/22/2019 Time: 22:14 Bed 26 Private MD: Diagnosis: Cutaneous abscess of right lower limb-hip Presentation: 10/21 22:30 Chief complaint: Patient states: Abscess with surrounding cellulitis to right hip for 4 ll1 days. No fever. Coronavirus screen: Client denies travel out of the [place] in the last 14 days. At this time, the client does not indicate any symptoms associated with coronavirus-19. Ebola Screen: Patient denies travel to an Ebola-affected area in the 21 days before illness onset. Initial Sepsis Screen: Does the patient meet any 2 criteria? No. Patient's initial sepsis screen is negative. Risk Assessment: Do you want to hurt yourself or someone else? Patient reports no desire to harm self or others. Onset of symptoms was October 19, 2019. 22:30 Method Of Arrival: Ambulatory ll1 22:30 Acuity: HUBER 4 ll1 Historical: - Allergies: 22:32 Tramadol HCl; ll1 - PMHx: 22:32 Osteoporosis; ll1 22:32 colon CA; ll1 - Immunization history:: Flu vaccine is up to date. - Social history:: Smoking status: Patient denies any tobacco usage or history of. Patient/guardian denies using alcohol, street drugs, tobacco products. Screenin:45 Abuse screen: Denies threats or abuse. Nutritional screening: No deficits noted. jb4 Tuberculosis screening: No symptoms or risk factors identified. Fall Risk None identified. Assessment: 22:45 General: Appears in no apparent distress. uncomfortable, Behavior is calm, cooperative, jb4 appropriate for age. Pain: Complains of pain in right inguinal area Pain does not radiate. Pain currently is 10 out of 10 on a pain scale. Quality of pain is described as stabbing. Neuro: Level of Consciousness is awake, alert, obeys commands, Oriented to person, place, time, situation. Cardiovascular: Patient's skin is warm and dry. Respiratory: Airway is patent Respiratory effort is even, unlabored, Respiratory pattern is regular, symmetrical. GI: No signs and/or symptoms were reported involving the gastrointestinal system. : No signs and/or symptoms were reported regarding the genitourinary system. EENT: No signs and/or symptoms were reported regarding the EENT system. Derm: Skin is intact, Skin is pink, warm \T\ dry. Abscess located on right inguinal area is quarter sized, has no drainage, is red, is raised. Musculoskeletal: Circulation, motion, and sensation intact. Range of motion: intact in all extremities. 23:45 Reassessment: Patient and/or family updated on plan of care and expected duration. Pain jb4 level reassessed. Pt remains A\T\O x4. reports feeling better after pain medication administration. Provider performing I\T\D at the bedside. PT tolerating procedure well. Respirations are even and unlabored. 10/22 00:45 Reassessment: Patient and/or family updated on plan of care and expected duration. Pain jb4 level reassessed. Pt is able to ambulate to the restroom with steady gait with little to no pain. Verbalized decrease in pain after I\T\D procedure. Verbalized understanding of need to follow up with PCP. Pt ambulated back to room. Verbalized understanding of d/c and follow up instructions. Denies questions or concerns. Assisted to vehicle via wheelchair. Patient states feeling better. Patient states symptoms have improved. Vital Signs: 10/21 22:30 BP 144 / 87; Pulse 82; Resp 17; Temp 99.0; Pulse Ox 96% ; Pain 10/10; ll1 23:30 BP 119 / 74; Pulse 70; Resp 16; Pulse Ox 96% on R/A; jb4 10/22 00:00 BP 112 / 58; Pulse 79; Resp 16; Pulse Ox 95% on R/A; jb4 ED Course: 10/21 22:14 Patient arrived in ED. cl3 22:23 Sang Long PA is PHCP. cp 22:23 Luis Patel MD is Attending Physician. cp 22:31 Triage completed. ll1 22:32 Arm band placed on Patient placed in an exam room, on a stretcher. ll1 22:44 Marty Pichardo RN is Primary Nurse. jb4 22:45 Patient has correct armband on for positive identification. Bed in low position. Call jb4 light in reach. Side rails up X 1. Pulse ox on. NIBP on. 23:00 Initial lab(s) drawn, by me, sent to lab. Inserted saline lock: 20 gauge in right jb4 antecubital area, using aseptic technique. Blood collected. 10/22 00:40 No provider procedures requiring assistance completed. IV discontinued, intact, jb4 bleeding controlled, No redness/swelling at site. Pressure dressing applied. Administered Medications: 10/21 23:00 Drug: NS 0.9% 500 ml Route: IV; Rate: bolus; Site: right antecubital; [facility] 23:30 Follow up: Response: No adverse reaction; IV Status: Completed infusion; IV Intake: jb4 500ml 23:00 Drug: fentaNYL (PF) 25 mcg {Note: rass score 0.} Route: IVP; Site: right antecubital; [facility] 23:30 Follow up: Response: No adverse reaction; Pain is decreased; RASS: Alert and Calm (0) [facility] 23:30 Drug: Lidocaine-Epinephrine -1%: (1:100,000) 5 ml {Note: Administered by ER provider..} 4 Volume: 20 ml; Route: Infiltration; 23:30 Drug: Marcaine (0.5 %) 10 ml {Note: Administered by ER provider.} Volume: 10 ml; Route: jb4 Infiltration; 10/22 00:00 Drug: Bactrim (160 mg-800 mg (DS) 1 tablet Route: PO; jb4 00:45 Follow up: Response: No adverse reaction jb4 00:00 Drug: Doxycycline 100 mg Route: PO; jb4 00:45 Follow up: Response: No adverse reaction jb4 00:45 Drug: Potassium Effervescent Tablet 25 mEq Route: PO; jb4 00:45 Follow up: Response: Medication administered at discharge. jb4 Intake: 10/21 23:30 IV: 500ml; Total: 500ml. jb4 Outcome: 10/22 00:05 Discharge ordered by . cp 00:45 Discharged to home via wheelchair, with family. jb4 00:45 Condition: stable 00:45 Discharge instructions given to patient, Instructed on discharge instructions, follow up and referral plans. medication usage, Demonstrated understanding of instructions, follow-up care, medications, Prescriptions given X 3. 00:47 Patient left the ED. jb4 Addendum: 10/26/2019 12:35 Addendum: Culture Results: Positive wound culture. No further action required. Bacteria s s sensitive to prescribed antibiotic. Signatures: Kate Carballo, RN RN ss Sang Long PA PA cp Bryson, James, RN RN jb4 Pro Fung cl3 Alfredo Fung RN RN ll1
[2019-10-23 00:08] LABS: Platelet Estimate ADEQ
[2019-10-23 00:09] LABS: Blood Morphology Comment NOT SEEN (NOT SEEN)
[2019-10-23] MEDS ORDERED: SMZ./TMP. 800/160 MG TABLET ONE (00:15)
[2019-10-23] MEDS ORDERED: DOXYCYCLINE 100 MG CAP PO ONE (00:15)
[2019-10-23] MEDS ORDERED: POTASSIUM 25 MEQ EFFERV TAB ONE (00:50)
[2019-10-23 00:51] VITALS: BP 144/87; TEMP 99; O2SAT 96
== END 2019-10-23 00:47 | disposition home or self-care (01) ==
LOC: ER 22:12
PROC: 0J9L0ZZ Drainage of Right Upper Leg Subcutaneous Tissue and Fascia, Open Approach (ICD-10-PCS; principal; 2019-10-23)
DX: L02.415 Cutaneous abscess of right lower limb (principal); Z88.5 Allergy status to narcotic agent; Z85.038 Personal history of other malignant neoplasm of large intestine
CPT/HCPCS: 87070; 85025; 80048; 36415; 87205; 87077; 87186; 96374; 99284; 10060; J3010; J7040

== ENCOUNTER → 2020-05-30 | Day surgery (SDC) | payer OTHER, BC, SELFPAY ==
[~2020-05-30] MED LIST: LIDOCAINE 1% MPF 5 ML VIAL ONE; Ringers Lactate 1,000 ML IV ONE; propofoL 200 MG/20 ML VIAL IV ONE
--- NOTE | 2020-05-30 08:01 | ENDO RPT ---
[address], [address] COLONOSCOPY PROCEDURE REPORT EXAM DATE: 05/30/2020 PATIENT NAME: Eliza Gr MR #: [id number] BIRTHDATE: 1960 ATTENDING: Daniel Mercer MD STATUS: outpatient PHARMACY TECHNOLOGY INSTRUCTOR: Isabel Dominguez RN and Lisbeth Evans INDICATIONS: The patient is a 60 yr old Female here for a colonoscopy due to history of colon cancer PROCEDURE PERFORMED: Colonoscopy MEDICATIONS: Per Anesthesia. ESTIMATED BLOOD LOSS: None CONSENT: The patient understands the risks and benefits of the procedure and understands that these risks include, but are not limited to: sedation, allergic reaction, infection, perforation and/or bleeding. Alternative means of evaluation and treatment include, among others: physical exam, x-rays, and/or surgical intervention. The patient elects to proceed with this endoscopic procedure. DESCRIPTION OF PROCEDURE: During intra-op preparation period all mechanical medical equipment was checked for proper function. Hand hygiene and appropriate measures for infection prevention was taken. Procedure, possible complications, alternatives including, but not limited to possibility of bleeding, perforation, tear, infection, sepsis, need for surgery, need for blood transfusion, were explained to the patient. After the risks, benefits and alternatives of the procedure were thoroughly explained, Informed consent was verified, confirmed and timeout was successfully executed by the treatment team. The patient was placed in the left lateral position. A digital rectal exam was performed and revealed no abnormalities of the rectum. After appropriate level of anesthesia, the scope was passed. The EC-[id number] ([id number]) endoscope was introduced through the anus and advanced to the cecum, which was identified by transillumination from the light source, the appendix, and the ileocecal valve. The quality of the prep was good. The instrument was then slowly withdrawn as the colon was fully examined. Scope withdrawal time was . COLON FINDINGS: There was no evidence of masses. Intact anastomosis. Retroflexed views revealed no abnormalities. The scope was then completely withdrawn from the patient and the procedure terminated. ADVERSE EVENTS: There were no complications. IMPRESSIONS: There was no evidence of masses. Intact anastomosis RECOMMENDATIONS: 1. continue surveillance 2. follow-up: office 1-2 week(s) RECALL: Return in 1 year(s) for Colonoscopy. Daniel Mercer MD eSigned: Daniel Mercer MD 05/30/2020 8:01 AM cc: Henrry Dominguez M.D. CPT CODES: ICD9 CODES: PATIENT NAME: Eliza Gr MR#: [id number]
[2020-05-30 08:53] VITALS: O2SAT 98
[2020-05-30 08:54] VITALS: BP 108/54; TEMP 97.4
== END ==
LOC: OR 05:49
PROVIDERS: ATTEND Surgery
PROC: 0DJD8ZZ Inspection of Lower Intestinal Tract, Via Natural or Artificial Opening Endoscopic (ICD-10-PCS; principal; 2020-05-30 07:30)
DX: Z85.038 Personal history of other malignant neoplasm of large intestine (principal); M81.0 Age-related osteoporosis without current pathological fracture; Z88.6 Allergy status to analgesic agent; Z91.011 Allergy to milk products; Z20.822 Contact with and (suspected) exposure to COVID-19
CPT/HCPCS: 45378; U0002; J2704; J7120

== ENCOUNTER 2020-10-20 19:40 | Emergency (ER) | payer OTHER, BC ==
--- OUTSIDE RECORDS SUMMARY | 2020-10-20 19:43 | XMS REPORT | Continuity of Care Document ---
:1960 Author Organization [facility] t Address [address] [place] [address] Care Team Providers Name Role Phone ANASTACIO Primary Care Physician Unavailable Diana WASHINGTON Attending Clinician Unavailable Anastacio HARO Attending Clinician Kamini HARO Attending Clinician Zhang DAWSON Attending Clinician MARTHA Attending Clinician Unavailable Payers Payer Name Policy Type Policy Number Effective Date Expiration Date S ource [place]PO POS [id number] 2017 00:00:00 Problems Condition Condition Condition Status Onset Resolution Last Treating Co mments Source Name Details Category Date Date Treatment Clinician Date Severe Severe Disease Active protein-ca protein-ca 04-16 Geraldine camacho 00:00: n malnutriti malnutriti 00 on on Painful Painful Disease Active urination urination 24 Leandro rso 00:00: n 00 Dehydratio Dehydratio Disease Active M D n n 04-15 Anderso 00:00: n 00 Irritant Irritant Disease Active contact contact 04-15 Anderso dermatitis dermatitis 00:00: n due to due to 00 ileostomy ileostomy Rectal Rectal Disease Active MD cancer cancer 10-28 Anderso 00:00: n 00 Menopause Menopause Disease Active -15 Anderso 00:00: n 00 Endometrio Endometrio Disease Active 1986-0 M D sis sis 10-21 Anderso 00:00: n 00 Osteoporos Osteoporos Disease Active M D is is Janie guallpa Gastric Gastric Disease Active reflux reflux Janie guallpa Personal Personal Disease Active history of history [...] guallpa Maternal aunt -Breast cancer MD Leandro [place] Social History Social Habit Start Date Stop Date Quantity Comments Source Tobacco use and 2019-04-19 2019-04-19 Never used MD Gaitan on exposure 00:00:00 00:00:00 Alcohol intake 2019-04-19 2019-04-19 Current MD Janie guallpa 00:00:00 00:00:00 non-drinker of alcohol (finding) Sex Ass[birth year] At [birth year] MD Gaitan on 00:00:00 00:00:00 Smoking Status Start Date Stop Date Source Never smoker MD Fuentes Medications Ordered Filled Start Stop Current Ordering Indication Dosage Frequency Signature Comments Components Source Medication Medication Date Date Medication? Clinician (SIG) Name Name diphenoxyla Yes Rectal TAKE 1 TO MD borgesatropine 7-02 cancer 2 TABLETS A nderso (LOMOTIL) 00:00: BY MOUTH n 2.5 00 EVERY 6 mg-0.025 mg HOURS per tablet NEEDED FOR DIARRHEA . DO NOT EXCEED 8 PER 24 HOURS diphenoxyla Yes Rectal TAKE 1 TO MD borgesatropine 2-18 cancer 2 TABLETS A nderso (LOMOTIL) 00:00: BY MOUTH n 2.5 00 EVERY 6 mg-0.025 mg HOURS per tablet NEEDED FOR DIARRHEA . DO NOT EXCEED 8 PER 24 HOURS diphenoxyla 2019-03 Rectal TAKE 1 TO MD borgesatropine 1-25 -18 cancer 2 TABLETS Anderso (LOMOTIL) 00:00: 00:00 BY MOUTH n 2.5 00 :00 EVERY 6 mg-0.025 mg HOURS per tablet NEEDED FOR DIARRHEA . DO NOT EXCEED 8 PER 24 HOURS diphenoxyla 2020-0 Yes Rectal TAKE 1 TO MD te-atropine 8-26 cancer 2 TABLETS A nderso (LOMOTIL) 00:00: BY MOUTH n 2.5 00 EVERY 6 mg-0.025 mg HOURS per tablet NEEDED FOR DIARRHEA . DO NOT EXCEED 8 PER 24 HOURS diphenoxyla 2020-0 2020- No Rectal TAKE 1 TO MD te-atropine 7-24 08-26 cancer 2 TABLETS Anderso (LOMOTIL) 00:00: 00:00 BY MOUTH n 2.5 00 :00 EVERY 6 mg-0.025 mg HOURS per tablet NEEDED FOR DIARRHEA . DO NOT EXCEED 8 TABLETS PER 24 HOURS alendronate Yes TAKE 1 MD (FOSAMAX) 6-25 TABLET BY Sree so 35 mg 00:00: MOUTH ONCE n tablet 00 A WEEK ciprofloxac 2019- Yes TAKE 1 MD in HCl 4-30 TABLET BY Anderso (CIPRO) 500 00:00: MOUTH n mg tablet 00 EVERY 12 HOURS FOR 7 DAYS diphenoxyla 2019-0 Yes Rectal TAKE 1 TO MD te-atropine 4-15 cancer 2 TABLETS A nderso (LOMOTIL) 00:00: BY MOUTH n 2.5 00 TWICE mg-0.025 mg DAILY per tablet NEEDED DIARRHEA. DO NOT EXCEED 8 TABLETS IN 24 HOURS loperamide Yes 2mg Take 2 mg MD (IMODIUM 1-30 by mouth Anderso A-D) 2 mg 18:18: as needed n tablet 04 for diarrhea. cyanocobala 2019-0 Yes 1000ug Take 1,000 MD min 1-30 mcg by Anderso (vitamin 18:18: mouth n B-12) 1000 04 every mcg tablet other day. peg 2018-03 Yes History of Use as MD 3350-electr 0-24 radiation directed Anderso olytes 00:00: therapy by n (GoLYTELY) 00 ordering [id number] provider. .74 g solution pantoprazol Yes 40mg Take 40 mg MD e 5-08 by mouth Anderso (PROTONIX) 00:00: daily with n 40 mg EC 00 breakfast. tablet lidocaine-p Yes Encounter Apply to rilocaine 1-10 for [place] Leandro rso (EMLA) 00:00: adjustment h area 30 n [...] hours as needed for nausea or vomiting. alendronate Yes 1{tbl} Take 1 MD (FOSAMAX) 5 6-26 tablet by And erso mg tablet 00:00: mouth once n 00 a week. Yes 1{tbl} Take 1 MD comb 1-15 tablet by Anderso no.42/folic 00:00: mouth n acid 00 daily. (PRENA1 CHEW ORAL) traZODone Yes 1.5{tbl Take 1.5 M D (DESYREL) 2-01 } tablets by Leandro rso 100 mg 00:00: mouth at n tablet 00 bedtime. Immunizations Ordered Immunization Filled Immunization Date Status Commen ts Source Name Name Influenza, 2019-01-20 Completed MD Fuentes Quadriv[employer] 00:00:00 Procedures This patient has no known procedures. Encounters Start End Encounter Admission Attending Care Care Encounter Source Date/Time Date/Time Type Type Clinicians Facility Department ID 2019-09-16 Outpatient MORENA WASHINGTON MDA MDA [id number] MD 17:47:44 Janie guallpa 2019-10-04 2019-10-04 Outpatient LISBET MCGRATH MDA MDA [id number] 00:00:00 00:00:00 Arnie SINGH 2019-09-22 2019-09-22 Outpatient LISBET [facility] MDA MDA [id number] MD 00:00:00 00:00:00 Arnie SINGH Results This patient has no known results.
--- NOTE | 2020-10-21 02:01 | ER ---
Nurse's Notes [facility] Name: Eliza Gr Age: 60 yrs Sex: Female : 1960 Arrival Date: 10/20/2020 Time: 19:41 Bed 5 Private MD: Diagnosis: Dyspnea;Coronavirus infection, unspecified-COVID 19;Acute upper respiratory infection, unspecified Presentation: 10/20 21:02 Chief complaint: Patient states: she has had fever, cough, body aches for 2 to 3 days bb and is feeling week. Coronavirus screen: cough unrelated to allergies, fever, Client presents with at least one sign or symptom that may indicate coronavirus-19. Standard/surgical mask placed on the client. Ebola Screen: No symptoms or risks identified at this time. Initial Sepsis Screen: Does the patient meet any 2 criteria? No. Patient's initial sepsis screen is negative. Does the patient have a suspected source of infection? No. Patient's initial sepsis screen is negative. Risk Assessment: Do you want to hurt yourself or someone else? Patient reports no desire to harm self or others. Onset of symptoms was October 17, 2020. 21:02 Method Of Arrival: Ambulatory bb 21:02 Acuity: HUBER 3 bb Triage Assessment: 21:05 General: Appears in no apparent distress. Behavior is calm, cooperative. Pain: bb Complains of pain in all over. Neuro: Level of Consciousness is awake, alert, obeys commands, Oriented to person, place, time, situation. Cardiovascular: Capillary refill < 3 seconds Patient's skin is warm and dry. Respiratory: Reports cough that is persistent Respiratory effort is even, unlabored. GI: Abdomen is non-distended. Derm: Skin is pink, warm \\T\\ dry. Musculoskeletal: Circulation, motion, and sensation intact. Historical: - Allergies: 21:05 Tramadol HCl; bb - PMHx: 21:05 COLON CA; Osteoporosis; bb - PSHx: 21:05 abdominal surgery; bb - Immunization history:: Adult Immunizations up to date, Client reports having NOT received the Covid vaccine. - Social history:: Smoking status: Patient denies any tobacco usage or history of. Screenin/01 03:04 Abuse screen: Denies threats or abuse. Nutritional screening: No deficits noted. em Tuberculosis screening: No symptoms or risk factors identified. Fall Risk None identified. Assessment: 03:00 General: Appears in no apparent distress. uncomfortable, Behavior is calm, cooperative, em appropriate for age. Pain: Complains of pain in "body aches". Neuro: Level of Consciousness is awake, alert, obeys commands, Oriented to person, place, time, situation, Appropriate for age. Cardiovascular: Capillary refill < 3 seconds Patient's skin is warm and dry. Respiratory: Airway is patent Respiratory effort is even, unlabored, Respiratory pattern is regular, symmetrical. EENT: Reports nasal congestion. Derm: Skin is intact, is healthy with good turgor, Skin is pink, warm \\T\\ dry. Musculoskeletal: Capillary refill < 3 seconds, Range of motion: intact in all extremities. Vital Signs: 10/20 21:02 BP 124 / 88; Pulse 103; Resp 18 S; Temp 99.6(O); Pulse Ox 96% on R/A; Weight 52.16 kg bb (R); Height 5 ft. 2 in. (157.48 cm) (R); Pain 10/10; 21:02 Body Mass Index 21.03 (52.16 kg, 157.48 cm) bb ED Course: 19:41 Patient arrived in ED. cf2 21:04 Triage completed. bb 21:05 Arm band placed on Patient placed in waiting room, Patient notified of wait time. Labs bb ordered per protocol. Drawn by ED staff. Family accompanied patient. 10/21 00:32 Jacobo Call PA is PHCP. jm 00:32 Sang Fuentes MD is Attending Physician. jm 01:10 Sang Fuentes MD is Attending Physician. jeremy 01:59 Reyes Montero MD is Referral Physician. jeremy 02:23 Chest Single View XRAY In Process Unspecified. EDMS 03:04 Ganesh Melendez, RN is Primary Nurse. em 03:04 Patient has correct armband on for positive identification. em 03:04 No provider procedures requiring assistance completed. Patient did not have IV access em during this emergency room visit. Administered Medications: 03:14 Drug: Tylenol 1000 mg Route: PO; em 03:15 Follow up: Response: Medication administered at discharge. em 03:14 Drug: Dexamethasone 6 mg Route: PO; em 03:15 Follow up: Response: Medication administered at discharge. em 03:14 Drug: Zithromax (azithromycin) 500 mg Route: PO; em 03:15 Follow up: Response: Medication administered at discharge. em 03:14 Drug: Aspirin 81 mg Route: PO; em 03:15 Follow up: Response: Medication administered at discharge. em 03:14 Drug: Albuterol HFA Inhaler 4 puffs Route: Inhalation; em 03:15 Follow up: Response: Medication administered at discharge. em Outcome: 02:01 Discharge ordered by . jeremy 03:17 Discharged to home ambulatory. em 03:17 Condition: stable 03:17 Discharge instructions given to patient, Instructed on discharge instructions, follow up and referral plans. medication usage, Demonstrated understanding of instructions, follow-up care, medications, Prescriptions given X 4. 03:27 Patient left the ED. em Signatures: Dispatcher [employer] Sang Meléndez MD MD cha Mickail, Joel, PA PA jmm Munoz, Edgar, RN RN em Ballard, Brenda, RN RN bb Frazier, Cel[facility]
--- NOTE | 2020-10-21 02:01 | EDPHYS ---
Physician Documentation [facility] Name: Eliza Gr Age: 60 yrs Sex: Female : 1960 Arrival Date: 10/20/2020 Time: 19:41 Bed 5 Private MD: ED Physician Sang Fuentes HPI: 10/21 01:54 This 60 yrs old Female presents to ER via Ambulatory with complaints of Fever, jeremy CANT TASTE OR SMELL ANYTHING. 01:54 The patient reports fever, that was measured at 100 degrees Fahrenheit. Onset: The jeremy symptoms/episode began/occurred 2 day(s) ago. Modifying factors: there are no obvious modifying factors. Associated signs and symptoms: Pertinent positives: runny nose, sinus congestion, sinus drainage. Severity of symptoms: At their worst the symptoms were mild in the emergency department the symptoms are unchanged. The patient has not experienced similar symptoms in the past. Historical: - Allergies: 10/20 21:05 Tramadol HCl; bb - PMHx: 21:05 COLON CA; Osteoporosis; bb - PSHx: 21:05 abdominal surgery; bb - Immunization history:: Adult Immunizations up to date, Client reports having NOT received the Covid vaccine. - Social history:: Smoking status: Patient denies any tobacco usage or history of. ROS: 10/21 01:55 Constitutional: Negative for fever, chills, and weight loss, Eyes: Negative for injury, jeremy pain, redness, and discharge, ENT: Negative for injury, pain, and discharge, Neck: Negative for injury, pain, and swelling, Cardiovascular: Negative for chest pain, palpitations, and edema, Respiratory: Negative for shortness of breath, cough, wheezing, and pleuritic chest pain, Abdomen/GI: Negative for abdominal pain, nausea, vomiting, diarrhea, and constipation, Back: Negative for injury and pain, : Negative for injury, bleeding, discharge, and swelling, MS/Extremity: Negative for injury and deformity, Skin: Negative for injury, rash, and discoloration, Neuro: Negative for headache, weakness, numbness, tingling, and seizure, Psych: Negative for depression, anxiety, suicide ideation, homicidal ideation, and hallucinations, Allergy/Immunology: Negative for hives, rash, and allergies, Endocrine: Negative for neck swelling, polydipsia, polyuria, polyphagia, and marked weight changes, Hematologic/Lymphatic: Negative for swollen nodes, abnormal bleeding, and unusual bruising. Respiratory: Positive for cough, with no reported sputum. Exam: 01:55 Constitutional: This is a well developed, well nourished patient who is awake, alert, jeremy and in no acute distress. Head/Face: Normocephalic, atraumatic. Eyes: Pupils equal round and reactive to light, extra-ocular motions intact. Lids and lashes normal. Conjunctiva and sclera are non-icteric and not injected. Cornea within normal limits. Periorbital areas with no swelling, redness, or edema. ENT: Nares patent. No nasal discharge, no septal abnormalities noted. Tympanic membranes are normal and external auditory canals are clear. Oropharynx with no redness, swelling, or masses, exudates, or evidence of obstruction, uvula midline. Mucous membranes moist. Neck: Trachea midline, no thyromegaly or masses palpated, and no cervical lymphadenopathy. Supple, full range of motion without nuchal rigidity, or vertebral point tenderness. No Meningismus. Chest/axilla: Normal chest wall appearance and motion. Nontender with no deformity. No lesions are appreciated. Cardiovascular: Regular rate and rhythm with a normal S1 and S2. No gallops, murmurs, or rubs. Normal PMI, no JVD. No pulse deficits. Abdomen/GI: Soft, non-tender, with normal bowel sounds. No distension or tympany. No guarding or rebound. No evidence of tenderness throughout. Back: No spinal tenderness. No costovertebral tenderness. Full range of motion. Female : Normal external genitalia. Skin: Warm, dry with normal turgor. Normal color with no rashes, no lesions, and no evidence of cellulitis. MS/ Extremity: Pulses equal, no cyanosis. Neurovascular intact. Full, normal range of motion. Neuro: Awake and alert, GCS 15, oriented to person, place, time, and situation. Cranial nerves II-XII grossly intact. Motor strength 5/5 in all extremities. Sensory grossly intact. Cerebellar exam normal. Normal gait. Psych: Awake, alert, with orientation to person, place and time. Behavior, mood, and affect are within normal limits. 01:55 Respiratory: the patient does not display signs of respiratory distress, Respirations: normal, no acute changes, Breath sounds: bronchial sounds, that are mild, decreased breath sounds, that are mild, rhonchi, that are mild, stridor, is not appreciated, wheezing: is not appreciated, Respiratory rate: 18 Vital Signs: 10/20 21:02 BP 124 / 88; Pulse 103; Resp 18 S; Temp 99.6(O); Pulse Ox 96% on R/A; Weight 52.16 kg bb (R); Height 5 ft. 2 in. (157.48 cm) (R); Pain 10/10; 21:02 Body Mass Index 21.03 (52.16 kg, 157.48 cm) bb MDM: 10/21 00:45 Patient medically screened. jeremy 01:57 Differential diagnosis: viral Infection, bacterial infection, URI, bronchitis, jeremy pneumonia. HEART Score: History: Slightly Suspicious (0), ECG: Age: > 45 and < 65 years (1), Risk Factors: No Risk Factors Known (0), Troponin:. The patient was given aspirin in the Emergency Department. The patient's deep vein thrombosis risk score was calculated as follows: Total Score: 0. This patient was found to be at low risk for a deep vein thrombosis by using the Well's assessment criteria. The patient's pulmonary embolism risk score was calculated as follows: Total Score: 0-2 points. This patient was found to be at low risk for a pulmonary embolism by using the Well's assessment criteria. ELMO Risk Score: TOTAL SCORE = 0. Data reviewed: vital signs, nurses notes, lab test result(s), radiologic studies, plain films. Data interpreted: speed winder: rate is 103 beats/min, rhythm is regular, Pulse oximetry: on room air is 96 %. Test interpretation: by ED physician or midlevel provider: plain radiologic studies. Counseling: I had a detailed discussion with the patient and/or guardian regarding: the historical points, exam findings, and any diagnostic results supporting the discharge/admit diagnosis, lab results, the need for outpatient follow up, for definitive care, a family practitioner, a social service manager. 10/20 21:05 Order name: Flu; Complete Time: 00:32 bb 10/20 21:05 Order name: Strep; Complete Time: 00:32 10/20 22:04 Order name: Throat Culture [facility] 10/20 22:41 Order name: SARS-COV-2 RT PCR; Complete Time: 00:32 EDMS 10/21 01:13 Order name: Chest Single View XRAY jeremy Administered Medications: 03:14 Drug: Tylenol 1000 mg Route: PO; em 03:15 Follow up: Response: Medication administered at discharge. em 03:14 Drug: Dexamethasone 6 mg Route: PO; em 03:15 Follow up: Response: Medication administered at discharge. em 03:14 Drug: Zithromax (azithromycin) 500 mg Route: PO; em 03:15 Follow up: Response: Medication administered at discharge. em 03:14 Drug: Aspirin 81 mg Route: PO; em 03:15 Follow up: Response: Medication administered at discharge. em 03:14 Drug: Albuterol HFA Inhaler 4 puffs Route: Inhalation; em 03:15 Follow up: Response: Medication administered at discharge. em Disposition Summary: 10/21/20 02:01 Discharge Ordered Location: Home jeremy Problem: new jeremy Symptoms: have improved jeremy Condition: Stable jeremy Diagnosis - Dyspnea jeremy - Coronavirus infection, unspecified - COVID 19 jeremy - Acute upper respiratory infection, unspecified jeremy Followup: jeremy - With: Private Physician - When: 2 - 3 days - Reason: Recheck today's complaints, Continuance of care, Re-evaluation by your physician Followup: jeremy - With: Reyes Montero MD - When: 2 - 3 days - Reason: Recheck today's complaints, Re-evaluation by your physician Discharge Instructions: - Discharge Summary Sheet jeremy - Fever, Adult jeremy - Upper Respiratory Infection, Adult jeremy - Viral Respiratory Infection jeremy - Cool Mist Vaporizer jeremy - Upper Respiratory Infection, Adult, Zvvl-bw-Weds jeremy - Cough, Adult, Fbjj-ki-Piet jeremy - Viral Respiratory Infection, Grbn-Cu-Ijat jeremy - Cough, Adult jeremy - COVID-19 jeremy - Viral Illness, Adult jeremy - Aspirin and Your Heart jeremy - Fever, Adult, Jqhn-tc-Ietf [facility] Forms: - Medication Reconciliation Form jeremy - Thank You Letter jeremy - Antibiotic Education [facility] - Prescription Opioid Use [facility] Prescriptions: - albuterol sulfate 90 mcg/actuation Inhalation HFA aerosol inhaler - inhale 2 puff by INHALATION route every 4 hours; 1 puff; Refills: 0, Product jeremy Selection Permitted - dexamethasone 2 mg Oral tablet - take 1 tablet by ORAL route 3 times per day; 15 tablet; Refills: 0, Product jeremy Selection Permitted - Zithromax 500 mg Oral Tablet - take 1 tablet by ORAL route once daily for 4 days; 4 tablet; Refills: 0, [facility] Product Selection Permitted - Pepcid 20 mg Oral Tablet - take 1 tablet by ORAL route every 12 hours for 10 days; 20 tablet; Refills: 0, [facility] Product Selection Permitted Signatures: Dispatcher [employer] Sang Meléndez MD MD cha Mickail, Joel, PA PA jmm Munoz, Edgar, MIREYA RN Radhika Murphy RN RN bb Corrections: (The following items were deleted from the chart) 10/20 21:33 21:05 CORONAVIRUS+.BRZ ordered. [facility]
[2020-10-21] MEDS ORDERED: ASPIRIN 81 MG CHEWABLE TABLET ONE (03:30)
[2020-10-21] MEDS ORDERED: AZITHROMYCIN 250 MG TAB ONE (03:30)
[2020-10-21] MEDS ORDERED: ALBUTEROL INHALER 60 PUFF/8 GM IH ONE (03:30)
[2020-10-21] MEDS ORDERED: dexAMETHasone 4 MG TAB ONE (03:30)
[2020-10-21] MEDS ORDERED: ACETAMINOPHEN 500 MG TAB ONE (03:30)
[2020-10-21 03:32] VITALS: BP 124/88; TEMP 99.6; O2SAT 96
--- NOTE | 2020-10-21 10:03 | RAD REPORT ---
EXAM DESCRIPTION: RAD - Chest Single View - 10/21/2020 2:24 am CLINICAL HISTORY: CHEST PAIN Chest pain. COMPARISON: Chest Pa And Lat (2 Views) dated 07/23/2017; CHEST SINGLE VIEW dated 11/15/2014; CHEST SING LE VIEW dated 11/10/2014; CHEST SINGLE VIEW dated 11/05/2014 FINDINGS: Portable technique limits examination quality. Mild peripherally oriented lung opacities are present the dominant both lung bases suspicious for inf ection. The opacities have a somewhat nodular appearance, however as well. The heart is normal in siz e. Recommend followup CT chest for further assessment.
== END 2020-10-21 03:27 | disposition home or self-care (01) ==
LOC: ER 19:40
DX: U07.1 COVID-19 (principal); J06.9 Acute upper respiratory infection, unspecified; R06.00 Dyspnea, unspecified; Z88.5 Allergy status to narcotic agent
CPT/HCPCS: 87070; 87081; 87804 ×2; 71045; 99284; U0003; J8540

== ENCOUNTER → 2021-04-02 | Day surgery (SDC) | payer OTHER, BC ==
--- NOTE | 2021-04-02 10:59 | RAD REPORT ---
EXAM DESCRIPTION: Ultrasound-guided vacuum assisted right breast core biopsy CLINICAL HISTORY: Breast mass R92.8 COMPARISON: No comparisons FINDINGS: Informed consent was obtained and time-out was performed. The patient's right breast was prepped and draped in the usual sterile fashion. 1% lidocaine was used for local anesthetic purposes. Utilizing aseptic technique and ultrasound guidance, a 12 gauge vacuum assisted core biopsy device wa s used to obtain 2 core specimens through the mass of interest retroareolar right breast. A post biop sy clip was then placed. All collected material was sent for cytology. Patient tolerated procedure well. IMPRESSION: Successful ultrasound guided vacuum assisted right breast mass biopsy.
== END ==
LOC: DS 09:45
PROVIDERS: ATTEND Clinical Nurse Specialist Women's Health
DX: R92.8 Other abnormal and inconclusive findings on diagnostic imaging of breast (principal)
CPT/HCPCS: 19083; 88305

== ENCOUNTER 2021-07-24 06:20 | Day surgery (SDC) | payer BC, OTHER ==
[2021-07-24] MEDS ORDERED: NA CHLORIDE 0.9% 1,000 ML ONE (06:54)
[2021-07-24] MEDS ORDERED: LIDOCAINE 1% MPF 5 ML VIAL ONE (07:24)
[2021-07-24] MEDS ORDERED: propofoL 200 MG/20 ML VIAL IV ONE (07:24)
--- NOTE | 2021-07-24 07:48 | ENDO RPT ---
[address], [address] COLONOSCOPY PROCEDURE REPORT EXAM DATE: 07/24/2021 PATIENT NAME: Eliza Gr MR #: [id number] BIRTHDATE: 1960 ATTENDING: Daniel Mercer MD STATUS: outpatient BOAT OFFICER: Lamar Powell RN and Lisbeth Evans INDICATIONS: The patient is a 61 yr old Female here for a colonoscopy due to history of colon cancer and s/p partial colectomy 2018 PROCEDURE PERFORMED: Colonoscopy with biopsy - cold polypectomy MEDICATIONS: Per Anesthesia. ESTIMATED BLOOD LOSS: None CONSENT: The patient understands the risks and benefits of the procedure and understands that these risks include, but are not limited to: sedation, allergic reaction, infection, perforation and/or bleeding. Alternative means of evaluation and treatment include, among others: physical exam, x-rays, and/or surgical intervention. The patient elects to proceed with this endoscopic procedure. DESCRIPTION OF PROCEDURE: During intra-op preparation period all mechanical medical equipment was checked for proper function. Hand hygiene and appropriate measures for infection prevention was taken. Procedure, possible complications, alternatives including, but not limited to possibility of bleeding, perforation, tear, infection, sepsis, need for surgery, need for blood transfusion, were explained to the patient. After the risks, benefits and alternatives of the procedure were thoroughly explained, Informed consent was verified, confirmed and timeout was successfully executed by the treatment team. The patient was placed in the left lateral position. A digital rectal exam was performed and revealed external hemorrhoids. After appropriate level of anesthesia, the scope was passed. The EC-[id number] ([id number]) endoscope was introduced through the anus and advanced to the terminal ileum which was intubated for a short distance. The quality of the prep was fair. The instrument was then slowly withdrawn as the colon was fully examined. Scope withdrawal time was . COLON FINDINGS: A sessile polyp was found near distal side of anastomosis. Retroflexed views revealed no abnormalities. The scope was then completely withdrawn from the patient and the procedure terminated. ADVERSE EVENTS: There were no complications. IMPRESSIONS: 1. Sessile polyp ranging between 3-5mm in size was found; polypectomy was performed in a piecemeal fashion using hot forceps 2. Colon cancer history RECOMMENDATIONS: follow-up: office 1 week(s) RECALL: Return in 1 year(s) for Colonoscopy, pending biopsy results. Daniel Mercer MD eSigned: Daniel Mercer MD 07/24/2021 7:48 AM cc: Henrry Dominguez M.D. CPT CODES: ICD9 CODES: PATIENT NAME: Eliza Gr MR#: [id number]
[2021-07-24 08:08] VITALS: O2SAT 99
[2021-07-24 08:45] VITALS: BP 108/53; TEMP 97
== END 2021-07-24 08:33 | disposition home or self-care (01) ==
LOC: OR 06:20
PROVIDERS: ATTEND Surgery
PROC: 0DBE8ZX Excision of Large Intestine, Via Natural or Artificial Opening Endoscopic, Diagnostic (ICD-10-PCS; principal; 2021-07-24 07:30)
DX: Z85.038 Personal history of other malignant neoplasm of large intestine (principal); K64.4 Residual hemorrhoidal skin tags; K63.5 Polyp of colon; Z20.822 Contact with and (suspected) exposure to COVID-19
CPT/HCPCS: 82947; 88305; 45384; U0003; J2704; J7030

== ENCOUNTER 2022-07-16 06:08 | Day surgery (SDC) | payer BC, OTHER ==
[2022-07-16] MEDS ORDERED: Ringers Lactate 1,000 ML IV ONE (06:50)
[2022-07-16] MEDS ORDERED: NA CHLORIDE 0.9% 1,000 ML ONE (07:09)
[2022-07-16] MEDS ORDERED: propofoL 200 MG/20 ML VIAL IV ONE ×2 (08:43)
[2022-07-16] MEDS ORDERED: LIDOCAINE 1% MPF 2 ML AMPULE ONE (08:44)
[2022-07-16 09:28] VITALS: TEMP 98.2; O2SAT 98
[2022-07-16 09:55] VITALS: BP 111/94
== END 2022-07-16 09:50 | disposition home or self-care (01) ==
LOC: PRE 06:08 → OR 09:50
PROVIDERS: ATTEND Surgery
PROC: 0DBN8ZX Excision of Sigmoid Colon, Via Natural or Artificial Opening Endoscopic, Diagnostic (ICD-10-PCS; principal; 2022-07-16 08:30)
DX: K59.00 Constipation, unspecified (principal); K21.9 Gastro-esophageal reflux disease without esophagitis; M81.0 Age-related osteoporosis without current pathological fracture; F41.9 Anxiety disorder, unspecified; K63.5 Polyp of colon; K64.4 Residual hemorrhoidal skin tags; K64.8 Other hemorrhoids; Z85.038 Personal history of other malignant neoplasm of large intestine
CPT/HCPCS: 82947; 88305; 45384; J2704; J7120; J7030

== ENCOUNTER 2023-10-28 05:41 | Day surgery (SDC) | payer BC, OTHER ==
[2023-10-26 12:12] LABS: Absolute Basophils 0.1 K/uL (0-0.5); Absolute Eosinophils 0.1 K/uL (0-0.5); Absolute Lymphocytes (CBC) 1.3 K/uL (0.7-4.9); Absolute Monocytes 0.6 K/uL (0.1-1.3); Absolute Neutrophil 8.7 K/uL (1.8-8.0); Basophils % 0.5 % (0-1.3); Eosinophils % 0.8 % (0-4.4); Hematocrit 36.4 % (36.0-45.0); Hemoglobin 11.8 g/dL (12.0-15.0); MCH 28.4 pg (27.0-35.0); MCHC 32.5 g/dL (32.0-36.0); MCV 87.4 fL (80-100); MPV 7.9 fL (7.6-11.3); Monocytes % 5.8 % (3.3-12.3); Neutrophils % 80.9 % (41.7-73.7); Platelets 233 thou/uL (152-406); RBC Red Blood Cell Count 4.16 M/uL (3.86-4.86); Red Cell Distribution Width 14.2 % (12.1-15.2)
[2023-10-26 12:43] LABS: Anion Gap 4.9 mEq/L (5.0-15.0); Potassium 3.9 mEq/L (3.5-5.1)
--- NOTE | 2023-10-26 16:57 | EKG ---
Test Date: 2023-10-26 Test Time: 12:05:02 Optician: GREER MEASUREMENT RESULTS: Intervals: Rate: 67 VA: 148 QRSD: 72 QT: 400 QTc: 422 Mackey: P: 83 VA: 148 QRS: 75 T: 77 INTERPRETIVE STATEMENTS: Normal sinus rhythm Normal ECG Compared to ECG 11/05/2014 00:24:44 Sinus tachycardia no longer present Electronically Signed On 10-26-23 16:56:32 CDT by Haroldo Rashid
[2023-10-28] MEDS: NA CHLORIDE 0.9% 1,000 ML ONE (06:30)
[2023-10-28] MEDS ORDERED: LIDOCAINE 1% MPF 5 ML VIAL ONE (07:20)
[2023-10-28] MEDS ORDERED: propofoL 200 MG/20 ML VIAL IV ONE (07:20)
[2023-10-28 09:06] VITALS: TEMP 98; O2SAT 99
[2023-10-28 09:08] VITALS: BP 119/52
== END 2023-10-28 08:50 | disposition home or self-care (01) ==
LOC: OR 05:41
PROVIDERS: ATTEND Surgery
PROC: 0DJD8ZZ Inspection of Lower Intestinal Tract, Via Natural or Artificial Opening Endoscopic (ICD-10-PCS; principal; 2023-10-28 07:30)
DX: Z12.11 Encounter for screening for malignant neoplasm of colon (principal); Z85.038 Personal history of other malignant neoplasm of large intestine; K64.4 Residual hemorrhoidal skin tags; K64.8 Other hemorrhoids
CPT/HCPCS: 93005; 85025; 80048; 36415; 82947; 45378; J2704; J2001; J7030